=== PATIENT | female | born 1980 | race African-American/Black ===

== ENCOUNTER 2018-12-18 11:27 | Emergency (ER) | payer BC ==
[2018-12-18] MEDS ORDERED: KETOROLAC 30 MG/ML INJ ONE (13:54)
[2018-12-18] MEDS ORDERED: NA CHLORIDE 0.9% 1,000 ML ONE (13:54)
[2018-12-18 14:15] LABS: Absolute Lymphocytes (CBC) 2.5 K/uL (0.7-4.9); Absolute Monocytes 0.5 K/uL (0.1-1.3); Absolute Neutrophil 3.8 K/uL (1.8-8.0); Basophils % 1.1 % (0-1.3); Hematocrit 37.6 % (36.0-45.0); Lymphocytes % 35.7 % (15.3-44.8); MPV 7.7 fL (7.6-11.3); Monocytes % 6.7 % (3.3-12.3)
[2018-12-18 14:42] LABS: ALT/SGPT 18 U/L (12-78); AST/SGOT 11 U/L (15-37); Albumin 3.3 g/dL (3.4-5.0); Alkaline Phosphatase 87 U/L (45-117); BUN Blood Urea Nitrogen 14 mg/dL (7-18); Bicarbonate 27 mmol/L (21-32); Bilirubin Total 0.2 mg/dL (0.2-1.0); Creatine Phosphokinase 99 U/L (26-192); Glucose Level 100 mg/dL (74-106); Magnesium 2.2 mg/dL (1.8-2.4); Potassium 4.1 mmol/L (3.5-5.1); Protein, Total 7.8 g/dL (6.4-8.2); Sodium Level 141 mmol/L (136-145); Troponin I < 0.02 ng/mL (0.0-0.045)
[2018-12-18 14:59] LABS: Urine Culture Reflex Order NOT NEEDED
[2018-12-18 15:15] LABS: Urine Blood NEGATIVE (NEG); Urine Glucose NEGATIVE (NEG); Urine Protein TRACE (NEG); Urine Specific Gravity >1.030 (1.005-1.030)
--- NOTE | 2018-12-18 15:21 | EDPHYS ---
Physician Documentation [facility] Name: Karena Barron Age: 38 yrs Sex: Female : 1980 Arrival Date: 12/18/2018 Time: 11:32 Bed 14 Private MD: ED Physician Sho Banegas HPI: 12/18 13:38 This 38 yrs old Black Female presents to ER via Ambulatory with complaints of Pain All cp Over. 13:38 generalized body aches, generalized muscle aches, generalized joint pain. Onset: The cp symptoms/episode began/occurred last night. Severity of symptoms: in the emergency department the symptoms are unchanged despite home interventions. 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 - Social history:: Smoking status: Patient/guardian denies using tobacco. - Ebola Screening: : Patient denies exposure to infectious person Patient denies travel to an Ebola-affected area in the 21 days before illness onset. ROS: 13:45 Constitutional: Positive for body aches, myalgias, Negative for fever, poor PO intake. cp 13:45 ENT: Negative for drainage from ear(s), ear pain, sore throat, difficulty swallowing, cp difficulty handling secretions. 13:45 Neck: Negative for pain with movement, stiffness, swollen nodes. 13:45 Cardiovascular: Negative for chest pain, edema, palpitations. 13:45 Respiratory: Negative for cough, shortness of breath, wheezing. 13:45 Abdomen/GI: Negative for abdominal pain, nausea, vomiting, and diarrhea, constipation, black/tarry stool, rectal bleeding. 13:45 : Negative for urinary symptoms. 13:45 MS/extremity: Positive for joint aches, Negative for injury or acute deformity, decreased range of motion, paresthesias. 13:45 Skin: Negative for cellulitis, rash. 13:45 Neuro: Negative for altered mental status, headache, weakness. 13:45 All other systems are negative. Exam: 13:50 Constitutional: The patient appears in no acute distress, alert, awake, non-toxic, well cp developed, well nourished. 13:50 Head/Face: Normocephalic, atraumatic. cp 13:50 Eyes: Pupils equal round and reactive to light, extra-ocular motions intact. Lids and cp lashes normal. Conjunctiva and sclera are non-icteric and not injected. Cornea within normal limits. Periorbital areas with no swelling, redness, or edema. ENT: Nares patent. No nasal discharge, no septal abnormalities noted. Tympanic membranes are normal and external auditory canals are clear. Oropharynx with no redness, swelling, or masses, exudates, or evidence of obstruction, uvula midline. Mucous membranes moist. 13:50 Neck: ROM/movement: Meningeal signs: are not present, nuchal rigidity, is not appreciated. 13:50 Chest/axilla: Inspection: normal, Palpation: is normal, no crepitus, no tenderness. 13:50 Cardiovascular: Rate: normal, Rhythm: regular, Edema: is not appreciated, JVD: is not appreciated. 13:50 Respiratory: the patient does not display signs of respiratory distress, Respirations: cp normal, no use of accessory muscles, no retractions, no splinting, no tachypnea, labored breathing, is not present, Breath sounds: are clear throughout, no decreased breath sounds, no stridor, no wheezing. 13:50 Abdomen/GI: Inspection: abdomen appears normal, Bowel sounds: active, all quadrants, Palpation: abdomen is soft and non-tender, in all quadrants, rebound tenderness, is not appreciated, voluntary guarding, is not appreciated, involuntary guarding, is not appreciated. 13:50 Back: pain, that is mild, diffuse, ROM is normal. 13:50 Skin: cellulitis, is not appreciated, no rash present. 13:50 Neuro: Orientation: to person, place \T\ time. Mentation: is normal, Cerebellar function: is grossly normal, Motor: moves all fours, strength is normal, Sensation: is normal. 14:10 ECG was reviewed by the Attending Physician. cp Vital Signs: 11:36 Pulse 82; Resp 16; Temp 97.4(TE); Pulse Ox 99% on R/A; Weight 95.25 kg; Height 5 ft. 6 ss in. (167.64 cm); Pain 7/10; 11:38 BP 109 / 68; ss 15:48 BP 119 / 82; Pulse 75; Resp 17; Pulse Ox 99% on R/A; aj 11:36 Body Mass Index 33.89 (95.25 kg, 167.64 cm) ss MDM: 13:33 Patient medically screened. cp 14:00 Differential Diagnosis sepsis, flu, UTI. cp 15:18 Data reviewed: vital signs, nurses notes, lab test result(s), and as a result, I will cp discharge patient. 15:18 Counseling: I had a detailed discussion with the patient and/or guardian regarding: the cp historical points, exam findings, and any diagnostic results supporting the discharge/admit diagnosis, lab results, the need for outpatient follow up, a family practitioner, to return to the emergency department if symptoms worsen or persist or if there are any questions or concerns that arise at home. 15:18 Response to treatment: the patient's symptoms have mildly improved after treatment, and cp as a result, I will discharge patient. 12/18 13:40 Order name: Influenza Screen (a \T\ B); Complete Time: 15:12 cp 12/18 13:40 Order name: CBC with Diff; Complete Time: 15:12 cp 12/18 15:12 Interpretation: Normal except: RBC 4.90; MCV 76.8; MCH 24.7; RDW 16.3. cp 12/18 13:40 Order name: CMP; Complete Time: 15:12 cp 12/18 15:13 Interpretation: Normal except: CL 109; A/G 0.7; GLOB 4.5; ALB 3.3; AST 11. cp 12/18 13:40 Order name: Urine Microscopic Only cp 12/18 13:40 Order name: Magnesium; Complete Time: 15:12 cp 12/18 13:40 Order name: Troponin I; Complete Time: 15:12 cp 12/18 13:40 Order name: Urine Dipstick-Ancillary (obtain specimen); Complete Time: 14:28 cp 12/18 13:40 Order name: Urine Test (obtain specimen); Complete Time: 14:28 cp 12/18 13:40 Order name: EKG; Complete Time: 13:41 cp 12/18 13:40 Order name: CK; Complete Time: 15:12 cp 12/18 14:30 Order name: Urine Dipstick--Ancillary (enter results) bd 12/18 14:30 Order name: Urine --Ancillary (enter results) bd 12/18 13:40 Order name: IV; Complete Time: 14:09 cp 12/18 13:40 Order name: EKG - Nurse/Tech; Complete Time: 14:09 cp EC:10 Rate is 75 beats/min. Rhythm is regular. NV interval is normal. QRS interval is normal. cp QT interval is normal. T waves are Flattened in lead III. Interpreted by me. Reviewed by me. Administered Medications: 14:29 Drug: NS 0.9% 1000 ml Route: IV; Rate: 1 bolus; Site: right antecubital; aj 15:50 Follow up: Response: No adverse reaction; Temperature is decreased; IV Status: aj Completed infusion; IV Intake: 1000ml 14:30 Drug: TORadol 30 mg Route: IVP; Site: right antecubital; aj 15:50 Follow up: Response: No adverse reaction; Pain is decreased aj Disposition: 16:00 Chart complete. cp 18:43 Co-signature as Attending Physician, Sho Banegas MD. ma2 Disposition: 12/18/18 15:20 Discharged to Home. Impression: Encounter for screening, unspecified. - Condition is Stable. - Discharge Instructions: Form - Excuse from Work, School, or Physical Activity. - Prescriptions for Ibuprofen 800 mg Oral Tablet - take 1 tablet by ORAL route every 8 hours As needed take with food; 30 tablet. - Work release form, Medication Reconciliation Form, Thank You Letter, Antibiotic Education, Prescription Opioid Use form. - Follow up: Private Physician; When: 2 - 3 days; Reason: Recheck today's complaints. - Problem is new. - Symptoms have improved. Signatures: Dispatcher [employer] Anu Luo RN RN aj Smirch, Shelby, RN RN ss Page, Corey, PA PA cp Alzahri, Mohammad, MD MD ma2 Corrections: (The following items were deleted from the chart) 15:13 15:12 Normal except: CL 109. cp cp 15:13 15:13 Normal except: CL 109; A/G 0.7; GLOB 4.5; ALB 3.3. cp cp 15:52 15:20 12/18/2018 15:20 Discharged to Home. Impression: Encounter for screening, aj unspecified. Condition is Stable. Forms are Medication Reconciliation Form, Thank You Letter, Antibiotic Education, Prescription Opioid Use. Follow up: Private Physician; When: 2 - 3 days; Reason: Recheck today's complaints. Problem is new. Symptoms have improved. cp
--- NOTE | 2018-12-18 15:21 | ER ---
Nurse's Notes [facility] Name: Karena Barron Age: 38 yrs Sex: Female : 1980 Arrival Date: 12/18/2018 Time: 11:32 Bed 14 Private MD: Diagnosis: Encounter for screening, unspecified Presentation: 12/18 11:32 Transition of care: patient was not received from another setting of care. Risk ss Assessment: Do you want to hurt yourself or someone else? Patient reports no desire to harm self or others. Care prior to arrival: None. 11:32 Method Of Arrival: Ambulatory ss 11:32 Presenting complaint: Patient states: Pt reports body aches that began last night. Pt ss states, "I don't have a fever or the flu or anything like that, but I have a skin condition and I don't think it does, but maybe it has something to do with that.". Onset of symptoms was December 17, 2018. Initial Sepsis Screen: Does the patient meet any 2 criteria? No. Patient's initial sepsis screen is negative. Does the patient have a suspected source of infection? No. Patient's initial sepsis screen is negative. 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 - Social history:: Smoking status: Patient/guardian denies using tobacco. - Ebola Screening: : Patient denies exposure to infectious person Patient denies travel to an Ebola-affected area in the 21 days before illness onset. Screenin:48 Abuse screen: Denies threats or abuse. Denies injuries from another. Nutritional aj screening: No deficits noted. Tuberculosis screening: No symptoms or risk factors identified. Fall Risk None identified. Assessment: 14:38 General: Appears in no apparent distress. comfortable, Behavior is calm, cooperative, aj appropriate for age. Pain: Complains of pain in all over. Neuro: Level of Consciousness is awake, alert, obeys commands, Oriented to person, place, time, situation, Appropriate for age. Respiratory: Airway is patent Respiratory effort is even, unlabored, Respiratory pattern is regular, symmetrical. Derm: Skin is intact, is healthy with good turgor, Skin is pink, warm \\T\\ dry. normal. Vital Signs: 11:36 Pulse 82; Resp 16; Temp 97.4(TE); Pulse Ox 99% on R/A; Weight 95.25 kg; Height 5 ft. 6 ss in. (167.64 cm); Pain 7/10; 11:38 BP 109 / 68; ss 15:48 BP 119 / 82; Pulse 75; Resp 17; Pulse Ox 99% on R/A; aj 11:36 Body Mass Index 33.89 (95.25 kg, 167.64 cm) ED Course: 11:32 Patient arrived in ED. ss 11:32 Arm band placed on left wrist. ss 11:34 Triage completed. ss 13:19 Anu Howell, RN is Primary Nurse. aj 13:33 Joe Salas PA is PHCP. cp 13:33 Sho aBnegas MD is Attending Physician. cp 14:04 Initial lab(s) drawn, by me, sent to lab. Flu and/or RSV swab sent to lab. Inserted dh3 saline lock: 20 gauge in right antecubital area, using aseptic technique. Blood collected. 14:22 EKG done, by nuclear plant instrument technician. reviewed by Joe KAPOOR. dt2 14:28 Urine collected: clean catch specimen, clear. dh3 15:48 Patient has correct armband on for positive identification. aj 15:48 No provider procedures requiring assistance completed. Patient did not have IV access aj during this emergency room visit. Administered Medications: 14:29 Drug: NS 0.9% 1000 ml Route: IV; Rate: 1 bolus; Site: right antecubital; aj 15:50 Follow up: Response: No adverse reaction; Temperature is decreased; IV Status: aj Completed infusion; IV Intake: 1000ml 14:30 Drug: TORadol 30 mg Route: IVP; Site: right antecubital; aj 15:50 Follow up: Response: No adverse reaction; Pain is decreased aj Intake: 15:50 IV: 1000ml; Total: 1000ml. aj Outcome: 15:20 Discharge ordered by . cp 15:48 Discharged to home ambulatory. aj 15:48 Condition: good 15:48 Discharge instructions given to patient, Instructed on discharge instructions, follow up and referral plans. medication usage, Demonstrated understanding of instructions, follow-up care, medications, Prescriptions given X 1. 15:52 Patient left the ED. aj Signatures: Anu Howell RN RN aj Smirch, Shelby, RN RN ss Page, Corey, PA PA cp Herrera, Sobeida 3 Christina Terry dt2
[2018-12-18 15:28] LABS: Urine Bacteria <20 /HPF (<20); Urine RBC <5 /HPF (NONE SEEN)
[2018-12-18 15:29] LABS: Urine Mucus 2+ /HPF (NONE SEEN)
--- NOTE | 2018-12-18 15:51 | EKG ---
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
== END 2018-12-18 15:52 | disposition home or self-care (01) ==
LOC: ER 11:27
DX: Z13.9 Encounter for screening, unspecified (principal)
CPT/HCPCS: 36415; 80053; 81003; 81015; 81025; 82550; 83735; 84484; 85025; 87804; 93005; 96361; 96374; 99284; J7030

== ENCOUNTER 2019-08-19 17:11 | Emergency (ER) | payer BC, SELFPAY ==
[2019-08-19] MEDS ORDERED: LIDOCAINE VISCOUS 2% SOLN 15 ML UDC ONE (18:00)
--- NOTE | 2019-08-19 18:26 | EDPHYS ---
Physician Documentation [facility] Name: Karena Barron Age: 39 yrs Sex: Female : 1980 Arrival Date: 08/19/2019 Time: 17:13 Bed 23 Private MD: ED Physician Miguel Huang HPI: 08/19 18:16 This 39 yrs old Black Female presents to ER via Ambulatory with complaints of gs Hemorrhoids. 18:16 The patient presents to the emergency department with pain in the rectal area, that is gs severe. Onset: The symptoms/episode began/occurred yesterday. Context: the patient has a known history of hemorrhoids. Modifying factors: The symptoms are aggravated by bowel movement, movement, sitting position. Associate signs and symptoms: Pertinent negatives: lower GI bleeding. The patient has experienced similar episodes in the past, a few times. The patient has not recently seen a physician. 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 - Social history:: The patient lives with family, Smoking status: unknown. - Ebola Screening: : No symptoms or risks identified at this time. ROS: 18:16 All other systems are negative. gs Exam: 18:16 Head/Face: Normocephalic, atraumatic. Eyes: Pupils equal round and reactive to light, gs extra-ocular motions intact. Lids and lashes normal. Conjunctiva and sclera are non-icteric and not injected. Cornea within normal limits. Periorbital areas with no swelling, redness, or edema. ENT: Nares patent. No nasal discharge, no septal abnormalities noted. Tympanic membranes are normal and external auditory canals are clear. Oropharynx with no redness, swelling, or masses, exudates, or evidence of obstruction, uvula midline. Mucous membranes moist. Neck: Trachea midline, no thyromegaly or masses palpated, and no cervical lymphadenopathy. Supple, full range of motion without nuchal rigidity, or vertebral point tenderness. No Meningismus. Chest/axilla: Normal chest wall appearance and motion. Nontender with no deformity. No lesions are appreciated. Cardiovascular: Regular rate and rhythm with a normal S1 and S2. No gallops, murmurs, or rubs. Normal PMI, no JVD. No pulse deficits. Respiratory: Lungs have equal breath sounds bilaterally, clear to auscultation and percussion. No rales, rhonchi or wheezes noted. No increased work of breathing, no retractions or nasal flaring. Back: No spinal tenderness. No costovertebral tenderness. Full range of motion. Skin: Warm, dry with normal turgor. Normal color with no rashes, no lesions, and no evidence of cellulitis. MS/ Extremity: Pulses equal, no cyanosis. Neurovascular intact. Full, normal range of motion. Neuro: Awake and alert, GCS 15, oriented to person, place, time, and situation. Cranial nerves II-XII grossly intact. Motor strength 5/5 in all extremities. Sensory grossly intact. Cerebellar exam normal. Normal gait. 18:16 Constitutional: The patient appears alert, awake, uncomfortable. 18:16 Abdomen/GI: Palpation: abdomen is soft and non-tender, in all quadrants, Rectal exam: hemorrhoid(s), external, with inflammation, with pain, without bleeding, without thrombosis. Vital Signs: 17:50 BP 124 / 82; Pulse 92; Resp 16 S; Temp 98.8(O); Pulse Ox 99% on R/A; Weight 95.25 kg aa5 (R); Height 5 ft. 7 in. (170.18 cm) (R); Pain 9/10; 17:50 Body Mass Index 32.89 (95.25 kg, 170.18 cm) aa5 MDM: 18:09 Patient medically screened. gs 18:16 Differential diagnosis: hemorrhoids, fissure. Data reviewed: vital signs, nurses notes. gs Counseling: I had a detailed discussion with the patient and/or guardian regarding: the historical points, exam findings, and any diagnostic results supporting the discharge/admit diagnosis, the need for outpatient follow up, a general surgeon. Response to treatment: the patient's symptoms have mildly improved after treatment, and as a result, I will discharge patient. Administered Medications: 18:08 Drug: Viscous Lidocaine Liquid (4 %) 1 vials {Note: administered by Dr. Huang to aa5 hemorrhoid. .} Route: Mucous Membrane; 18:51 Follow up: Response: No adverse reaction 18:30 Drug: [place] 10 mg-325 mg 1 tabs Route: PO; 18:51 Follow up: Response: No adverse reaction; RASS: Alert and Calm (0) Disposition: 08/19/19 18:26 Discharged to Home. Impression: Hemorrhoids and perianal venous thrombosis. - Condition is Stable. - Discharge Instructions: Hemorrhoids, [id number]. - Medication Reconciliation Form, Thank You Letter, Antibiotic Education, Prescription Opioid Use form. - Follow up: Ta Irvin MD; When: 1 - 2 days; Reason: Re-evaluation by your physician. - Notes: recticare and colace stool softener as directed over the counter Signatures: Mayte Fox RN RN 5 Wyatt Byrnes Miguel Huang MD MD Corrections: (The following items were deleted from the chart) 18:54 18:26 08/19/2019 18:26 Discharged to Home. Impression: Hemorrhoids and perianal venous wh thrombosis. Condition is Stable. Forms are Medication Reconciliation Form, Thank You Letter, Antibiotic Education, Prescription Opioid Use. Follow up: Dr. Ta Irvin; When: 1 - 2 days; Reason: Re-evaluation by your physician. gs
--- NOTE | 2019-08-19 18:26 | ER ---
Nurse's Notes [facility] Name: Karena Barron Age: 39 yrs Sex: Female : 1980 Arrival Date: 08/19/2019 Time: 17:13 Bed 23 Private MD: Diagnosis: Hemorrhoids and perianal venous thrombosis Presentation: 08/19 17:46 Presenting complaint: Patient states: external hemorrhoids and pain to site. Pt denies aa5 rectal bleeding. 17:46 Transition of care: patient was not received from another setting of care. Onset of aa5 symptoms was August 2019. Risk Assessment: Do you want to hurt yourself or someone else? Patient reports no desire to harm self or others. Initial Sepsis Screen: Does the patient meet any 2 criteria? No. Patient's initial sepsis screen is negative. Does the patient have a suspected source of infection? No. Patient's initial sepsis screen is negative. Care prior to arrival: None. 17:46 Acuity: TATY 3 aa5 17:46 Method Of Arrival: Ambulatory aa5 Triage Assessment: 18:49 General: Behavior is calm, cooperative, appropriate for age. 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 - Social history:: The patient lives with family, Smoking status: unknown. - Ebola Screening: : No symptoms or risks identified at this time. Screenin:46 Abuse screen: Denies threats or abuse. Denies injuries from another. Nutritional screening: No deficits noted. Tuberculosis screening: No symptoms or risk factors identified. Fall Risk None identified. Assessment: 18:05 General: Appears in no apparent distress. uncomfortable. Pain: Complains of pain in Rectal Area Pain does not radiate. Pain currently is 10 out of 10 on a pain scale. Neuro: Level of Consciousness is awake, alert, obeys commands. Cardiovascular: Capillary refill < 3 seconds. Respiratory: Airway is patent Respiratory effort is even, unlabored, Respiratory pattern is regular, symmetrical. GI: Abdomen is flat, non-distended, Reports hemorrhoids. : No signs and/or symptoms were reported regarding the genitourinary system. EENT: No signs and/or symptoms were reported regarding the EENT system. Derm: Skin is intact, is healthy with good turgor, Skin is pink, warm \T\ dry. normal. Musculoskeletal: Circulation, motion, and sensation intact. Vital Signs: 17:50 BP 124 / 82; Pulse 92; Resp 16 S; Temp 98.8(O); Pulse Ox 99% on R/A; Weight 95.25 kg aa (R); Height 5 ft. 7 in. (170.18 cm) (R); Pain 9/10; 17:50 Body Mass Index 32.89 (95.25 kg, 170.18 cm) [facility] ED Course: 17:13 Patient arrived in ED. mr 17:46 Arm band placed on Patient placed in an exam room, on a stretcher. [facility] 17:49 Miguel Huang MD is Attending Physician. 17:57 Wyatt Byrnes is Primary Nurse. 18:05 Placed in gown. Bed in low position. Call light in reach. Side rails up X 1. Pulse ox wh on. NIBP on. 18:07 Triage completed. [facility] 18:25 Ta Irvin MD is Referral Physician. 18:49 No provider procedures requiring assistance completed. Patient did not have IV access during this emergency room visit. Administered Medications: 18:08 Drug: Viscous Lidocaine Liquid (4 %) 1 vials {Note: administered by Dr. Huang to [facility] hemorrhoid. .} Route: Mucous Membrane; 18:51 Follow up: Response: No adverse reaction 18:30 Drug: [place] 10 mg-325 mg 1 tabs Route: PO; 18:51 Follow up: Response: No adverse reaction; RASS: Alert and Calm (0) Outcome: 18:26 Discharge ordered by . 18:49 Discharged to home ambulatory, with family. 18:49 Condition: good 18:49 Discharge instructions given to patient, Instructed on discharge instructions, follow up and referral plans. POC Hemorrhoids Demonstrated understanding of instructions, follow-up care, POC 18:54 Patient left the ED. Signatures: Raquel Wyman mr FoxMayte, RN RN [facility] Wyatt Byrnes Huang, Miguel, MD MD gs
[2019-08-19] MEDS ORDERED: HYDROCODONE/APAP 10/325 TAB ONE (18:46)
[2019-08-19 19:14] VITALS: BP 124/82; TEMP 98.8; O2SAT 99
== END 2019-08-19 18:54 | disposition home or self-care (01) ==
LOC: ER 17:11
DX: K64.5 Perianal venous thrombosis (principal); K64.9 Unspecified hemorrhoids
CPT/HCPCS: 99283

== ENCOUNTER 2021-01-22 09:11 | Emergency (ER) | payer SELFPAY ==
--- OUTSIDE RECORDS SUMMARY | 2021-01-22 09:14 | XMS REPORT | Continuity of Care Document ---
:1980 Author Organization [facility] t Address [address] [place] [address] Care Team Providers Name Role Phone Asked, Pcp Primary Care Physician Unavailable MCLEOD Attending Clinician Unavailable ALDANA Attending Clinician Unavailable Problems Condition Condition Condition Status Onset Resolution Last Treating Co mments Source Name Details Category Date Date Treatment Clinician Date Antepartum Antepartum Problem Active U nivers elderly elderly ity of multigrav[place] multigrav[place] [facility] Macrosomia Macrosomia Problem Active U nivers affecting affecting [place] of management [place] of mother, of mother, Ph ysici antepartum antepartum an s Hidradenit Hidradenit Problem Active U nivers is is ity of suppurativ suppurativ [place] [facility] ans [place] of Mass of Problem Active Univers both both ity of axillae axillae [place] [facility] Allergies, Adverse Reactions, Alerts This patient has no known allergies or adverse reactions. Family History Family Member Diagnosis Comments Start Date Stop Date Source Mother Family history of [facility] ity of malignant [place] [facility] neoplasm of female breast Father Family history of [facility] ity of lung cancer [place] [facility] Maternal grandmother Breast cancer [place] Natural mother Breast cancer [place] [employer] Social History Social Habit Start Date Stop Date Quantity Comments Source Sex Assigned At [place] Smoking Status Start Date Stop Date Source Former smoker [facility] Medications This patient has no known medications. Vital Signs Vital Name Observation Time Observation Value Comments Source BP Systolic 2019-01-01 14:33:00 125 mm[Hg] [facility] Physician s BP Diastolic 2019-01-01 14:33:00 84 mm[Hg] [facility] Physician s Height 2019-01-01 14:33:00 67 [in_us] [facility] Weight 2019-01-01 14:33:00 216.6 [lb_av] [facility] [place] [facility] Body Mass Index 2019-01-01 14:33:00 33.92 kg/m2 Unive rsity of Calculated [place] [facility] Temperature 2019-01-01 14:33:00 98.8 [degF] [facility] [place] [facility] Heart Rate 2019-01-01 14:33:00 85 /min [facility] [place] [facility] BP Systolic 2018-03-11 14:40:00 137 mm[Hg] [facility] [place] [facility] BP Diastolic 2018-03-11 14:40:00 80 mm[Hg] [facility] [place] [facility] Weight 2018-03-11 14:40:00 210 [lb_av] [facility] [place] [facility] Temperature 2018-03-11 14:40:00 98.7 [degF] [facility] [place] [facility] Heart Rate 2018-03-11 14:40:00 97 /min [facility] [place] [facility] Procedures This patient has no known procedures. Plan of Care Planned Activity Planned Date Details Comments Source Future Scheduled 2020-06-19 INFLUENZA VACCINE [place] [facility] Test 00:00:00 [code = INFLUENZA VACCINE] Future Scheduled 1999 Screening for [facility] 00:00:00 malignant neoplasm of cervix (procedure) [code = 459006313] Future Scheduled 1994 COVID-19 VACCINE (1 [place] [employer] [facility] Test 00:00:00 of 2) [code = COVID-19 VACCINE (1 of 2)] Encounters Start End Encounter Admission Attending Care Care Encounter Source Date/Time Date/Time Type Type Clinicians Facility Department ID 2019-01-01 2019-01-01 JOLIE Devries [facility] [id number] Univers 14:00:00 14:00:00 t; Rosanne SANTIAGO Surgery it y of Alondra MCLEOD Physici M.D. ans 2018-03-28 2018-03-28 AppointJOLIE Mcelroy [facility] [id number] Univers 13:15:00 13:15:00 t; SHE ALDANA ity o f STEVEN, M.D. [place] M.D. [facility] ans 2018-03-11 2018-03-11 Appointmen SHANI [facility] [id number] Univers 14:00:00 14:00:00 t; Rosanne SANTIAGO Surgery it y of Alondra MCLEOD Physici M.D. ans Results This patient has no known results.
[2021-01-22] MEDS ORDERED: TETANUS & DIPHTHERIA TOX,ADULT 0.5 ML VIAL ONE (10:06)
[2021-01-22] MEDS ORDERED: LIDOCAINE 1% MPF 5 ML VIAL ONE (10:12)
[2021-01-22] MEDS ORDERED: HYDROCODONE/APAP 5/325 MG TAB ONE (10:39)
--- NOTE | 2021-01-22 10:54 | RAD REPORT ---
EXAM DESCRIPTION: RAD - Hand Left 3 View - 01/22/2021 9:41 am CLINICAL HISTORY: Swelling;Painsecond digit COMPARISON: None. FINDINGS: No fracture, dislocation or periosteal reaction noted. Left second digit soft tissue swell ing is present but no air or foreign body seen in the soft tissues. IMPRESSION: Left second digit soft tissue swelling without air or foreign body in the soft tissues. No acute bone or joint findings.
--- NOTE | 2021-01-22 11:09 | ER ---
Nurse's Notes [facility] Name: Karena Barron Age: 40 yrs Sex: Female : 1980 Arrival Date: 01/22/2021 Time: 09:13 Bed 19 Private MD: Diagnosis: Cutaneous abscess of left hand-left second finger Presentation: 01/22 09:15 Chief complaint: Patient states: "as a child I got led stuck in my finger and about 3 aa5 to 4 days ago it seems like the led is trying to come out of my finger". Pt reports swelling and redness to left index finger. 09:15 Onset of symptoms was January 2021. aa5 09:15 Acuity: TATY 4 aa5 09:15 Method Of Arrival: Ambulatory aa5 09:15 Coronavirus screen: At this time, the client does not indicate any symptoms associated aa5 with coronavirus-19. Ebola Screen: Patient negative for fever greater than or equal to 101.5 degrees Fahrenheit, and additional compatible Ebola Virus Disease symptoms. Initial Sepsis Screen: Does the patient meet any 2 criteria? No. Patient's initial sepsis screen is negative. Does the patient have a suspected source of infection? No. Patient's initial sepsis screen is negative. Risk Assessment: Do you want to hurt yourself or someone else? Patient reports no desire to harm self or others. Triage Assessment: 09:15 General: Appears in no apparent distress. comfortable, Behavior is calm, cooperative, rb3 Denies fever. Pain: Complains of pain in palmar aspect of middle phalanx of left index finger Pain currently is 8 out of 10 on a pain scale. Pain began 3-4 days ago. Neuro: Level of Consciousness is awake, alert, obeys commands, Oriented to person, place, time, situation. Cardiovascular: Capillary refill < 3 seconds. Respiratory: Airway is patent Respiratory effort is even, unlabored, Respiratory pattern is regular, symmetrical. GI: No signs and/or symptoms were reported involving the gastrointestinal system. : No signs and/or symptoms were reported regarding the genitourinary system. Musculoskeletal: Swelling present in palmar aspect of middle phalanx of left index finger Reports Having a piece of led stuck in her finger since she was younger and she thinks it is trying to come out. Denies injuring her finger. Musculoskeletal: Range of motion: limited in left index finger. 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 - Social history:: Smoking status: Patient reports the use of cigarette tobacco products, denies chronic smoking, but will smoke occasionally. Screenin:15 Abuse screen: Denies threats or abuse. Nutritional screening: No deficits noted. rb3 Tuberculosis screening: No symptoms or risk factors identified. Fall Risk None identified. Assessment: 09:15 General: See triage assessment. rb3 10:09 Reassessment: Patient appears in no apparent distress at this time. No changes from rb3 previously documented assessment. 10:33 Reassessment: Provider at the bedside performing procedure. rb3 11:21 Reassessment: Patient appears in no apparent distress at this time. Patient and/or rb3 family updated on plan of care and expected duration. Pain level reassessed. Patient is alert, oriented x 3, equal unlabored respirations, skin warm/dry/pink. Applied a non-adherent bandage with Coban to the left index fiinger. No bleeding noted. Vital Signs: 09:15 BP 112 / 81; Pulse 68; Resp 17; Temp 98.2; Pulse Ox 99% ; Weight 92.99 kg; Height 5 ft. rb3 6 in. (167.64 cm); Pain 8/10; 10:48 BP 121 / 90; Pulse 84; Resp 16; Pulse Ox 100% ; rb3 11:24 BP 116 / 69; Pulse 84; Resp 16; Pulse Ox 100% ; rb3 09:15 Body Mass Index 33.09 (92.99 kg, 167.64 cm) rb3 ED Course: 09:13 Patient arrived in ED. am2 09:15 Arm band placed on Patient placed in an exam room. aa5 09:15 Patient has correct armband on for positive identification. Bed in low position. Call rb3 light in reach. Side rails up X 1. Pulse ox on. NIBP on. 09:16 Ankur Patel NP is PHCP. pm1 09:16 Joe Lawrence MD is Attending Physician. pm1 09:17 Maria E Hylton, RN is Primary Nurse. rb3 09:32 Triage completed. aa5 11:26 No provider procedures requiring assistance completed. Patient did not have IV access rb3 during this emergency room visit. 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 Exp: rb3 04/24/2022. Lot #: [id number]. } Route: IM; Site: right deltoid; 10:03 Follow up: Response: No adverse reaction rb3 10:24 Drug: [place] 5 mg-325 mg 1 tabs Route: PO; rb3 11:09 Follow up: Response: No adverse reaction; Pain is decreased rb3 10:42 Drug: Lidocaine (1 %) 5 ml Volume: 5 ml; Route: Infiltration; rb3 Outcome: 11:09 Discharge ordered by MD. pm1 11:26 Discharged to home ambulatory. rb3 11:26 Condition: stable 11:26 Discharge instructions given to patient, Instructed on discharge instructions, follow up and referral plans. medication usage, Demonstrated understanding of instructions, follow-up care, medications, Prescriptions given X 2. 11:28 Patient left the ED. rb3 Addendum: 01/25/2021 10:26 Addendum: Culture Results: Positive urine culture. No further action required. Bacteria h b sensitive to prescribed antibiotic. Signatures: Mayte Fox RN RN aa5 Ankur Patel NP WIRE DRAWER pm1 Asuncion Barber RN RN Anu Mitchell [facility] Maria E Hylton, CHARLES RN rb3
--- NOTE | 2021-01-22 11:09 | EDPHYS ---
Physician Documentation [facility] Name: Karena Barron Age: 40 yrs Sex: Female : 1980 Arrival Date: 01/22/2021 Time: 09:13 Bed 19 Private MD: ED Physician Joe Lawrence HPI: 01/22 09:49 This 40 yrs old Black Female presents to ER via Ambulatory with complaints of left pm1 index finger swelling. 09:49 The patient or guardian reports pain, swelling. pm1 09:49 The complaints affect the palmar aspect of proximal phalanx of left index finger. pm1 Context: resulted from an unknown cause, possibly from old pencil lead that might be in her finger from over 25 years ago. Onset: The symptoms/episode began/occurred 3 day(s) ago, and became worse. Modifying factors: The symptoms are alleviated by nothing, the symptoms are aggravated by movement. Severity of symptoms: in the emergency department the symptoms are actually worse. The patient has not experienced similar symptoms in the past. The patient has not recently seen a physician. CALL MANAGER: 09:15 LMP 01/16/2021 rb3 Historical: - Allergies: 09:15 unknown pain medication; rb3 - Home Meds: 09:15 None [Active]; rb3 - PMHx: 09:15 Depression; hydranitis suppurativa; rb3 - PSHx: 09:15 ; rb3 - Immunization history:: Last tetanus immunization: unknown. - Social history:: Smoking status: Patient reports the use of cigarette tobacco products, denies chronic smoking, but will smoke occasionally. ROS: 09:49 Constitutional: Negative for fever, chills, and weight loss, Cardiovascular: Negative pm1 for chest pain, palpitations, and edema, Respiratory: Negative for shortness of breath, cough, wheezing, and pleuritic chest pain. 09:49 MS/extremity: Positive for pain, swelling, tenderness, of the palmar aspect of middle phalanx of left index finger, Negative for decreased range of motion, deformity. 09:49 Skin: Positive for swelling, of the palmar aspect of middle phalanx of left index finger. 09:49 Neuro: Negative for numbness, tingling, to left hand and fingers. Exam: 09:49 Constitutional: This is a well developed, well nourished patient who is awake, alert, pm1 and in no acute distress. Head/Face: Normocephalic, atraumatic. 09:49 Cardiovascular: Exam negative for acute changes, Rate: normal, Rhythm: regular, Pulses: no pulse deficits are appreciated. 09:49 Respiratory: Exam negative for acute changes, respiratory distress, shortness of breath. 09:49 Musculoskeletal/extremity: Extremities: grossly normal except: noted in the palmar aspect of middle phalanx of left index finger: swelling, tenderness. 09:49 Skin: Appearance: normal except for affected area, abscess, that is small, of the palmar aspect of proximal phalanx of left index finger, with fluctuance, with pointing, that is subtle, negative for drainage, surrounding cellulitis, drainage, cellulitis, is not appreciated. Vital Signs: 09:15 BP 112 / 81; Pulse 68; Resp 17; Temp 98.2; Pulse Ox 99% ; Weight 92.99 kg; Height 5 ft. rb3 6 in. (167.64 cm); Pain 8/10; 10:48 BP 121 / 90; Pulse 84; Resp 16; Pulse Ox 100% ; rb3 11:24 BP 116 / 69; Pulse 84; Resp 16; Pulse Ox 100% ; rb3 09:15 Body Mass Index 33.09 (92.99 kg, 167.64 cm) rb3 Procedures: 11:07 I \T\ D: Incision and drainage was performed for an abscess of the left palmar aspect of pm1 proximal phalanx of left index finger Prepped with Betadine, Anesthetized with 5 ml's 1% Lidocaine. digital block. Incised with #11 blade. Drained small amount purulent fluid. the patient tolerated the procedure well. MDM: 09:17 Patient medically screened. pm1 11:07 Data reviewed: vital signs. Counseling: I had a detailed discussion with the patient pm1 and/or guardian regarding: the historical points, exam findings, and any diagnostic results supporting the discharge/admit diagnosis, radiology results, the need for outpatient follow up, a hand specialist, to return to the emergency department if symptoms worsen or persist or if there are any questions or concerns that arise at home. 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 Exp: rb3 04/24/2022. Lot #: [id number]. } Route: IM; Site: right deltoid; 10:03 Follow up: Response: No adverse reaction rb3 10:24 Drug: [place] 5 mg-325 mg 1 tabs Route: PO; rb3 11:09 Follow up: Response: No adverse reaction; Pain is decreased rb3 10:42 Drug: Lidocaine (1 %) 5 ml Volume: 5 ml; Route: Infiltration; rb3 Disposition: 01/23 09:08 Co-signature as Attending Physician, Joe Lawrence MD I agree with the assessment and bright plan of care. Disposition: 01/22/21 11:09 Discharged to Home. Impression: Cutaneous abscess of left hand - left second finger. - Condition is Stable. - Discharge Instructions: Skin Abscess, Incision and Drainage. - Prescriptions for Bactrim DS 800- 160 mg Oral Tablet - take 1 tablet by ORAL route every 12 hours for 10 days; 20 tablet. Tylenol- Codeine #3 300-30 mg Oral Tablet - take 2 tablets by ORAL route every 4-6 hours As needed; 20 tablet. - Medication Reconciliation Form, Thank You Letter, Antibiotic Education, Prescription Opioid Use form. - Follow up: Emergency Department; When: As needed; Reason: Worsening of condition. Follow up: Private Physician; When: 2 - 3 days; Reason: Recheck today's complaints, Continuance of care, Re-evaluation by your physician. - Problem is new. - Symptoms have improved. Signatures: Dispatcher [employer] Joe Chua MD MD cha Marinas, Patrick, PATIENT REGISTRATION CLERK PATIENT REGISTRATION CLERK pm1 Maria E Hylton, RN RN rb3 Corrections: (The following items were deleted from the chart) 01/22 11:08 11:07 Counseling: I had a detailed discussion with the patient and/or guardian pm1 regarding: the historical points, exam findings, and any diagnostic results supporting the discharge/admit diagnosis, radiology results, the need for outpatient follow up, to return to the emergency department if symptoms worsen or persist or if there are any questions or concerns that arise at home, pm1 11:28 11:09 01/22/2021 11:09 Discharged to Home. Impression: Cutaneous abscess of left hand - rb3 left second finger. Condition is Stable. Forms are Medication Reconciliation Form, Thank You Letter, Antibiotic Education, Prescription Opioid Use. Follow up: Emergency Department; When: As needed; Reason: Worsening of condition. Follow up: Private Physician; When: 2 - 3 days; Reason: Recheck today's complaints, Continuance of care, Re-evaluation by your physician. Problem is new. Symptoms have improved. pm1 20:59 09:49 The complaints affect the palmar aspect of middle phalanx of left index finger, pm1 pm1 21:01 09:49 Skin: Positive for swelling, of the palmar aspect of middle phalanx of left index pm1 finger, pm1 21:02 09:49 Skin: Appearance: normal except for affected area, abscess, that is small, of the pm1 palmar aspect of middle phalanx of left index finger, with fluctuance, with pointing, that is subtle, negative for drainage, surrounding cellulitis, drainage, cellulitis, is not appreciated, pm1
[2021-01-22 11:39] VITALS: TEMP 98.2
[2021-01-22 11:40] VITALS: O2SAT 100
[2021-01-22 11:45] VITALS: BP 116/69
== END 2021-01-22 11:28 | disposition home or self-care (01) ==
LOC: ER 09:11
PROC: 0H9GXZZ Drainage of Left Hand Skin, External Approach (ICD-10-PCS; principal; 2021-01-22)
DX: L02.512 Cutaneous abscess of left hand (principal); F17.210 Nicotine dependence, cigarettes, uncomplicated; Z23 Encounter for immunization; Z88.6 Allergy status to analgesic agent
CPT/HCPCS: 87070; 87077; 87186; 87205; 90471; 90714; 99283

== ENCOUNTER 2022-03-21 23:12 | Emergency (ER) | payer SELFPAY ==
--- OUTSIDE RECORDS SUMMARY | 2022-03-21 23:15 | XMS REPORT | Continuity of Care Document ---
:1980 Author Organization [facility] t Address [address] [place] [address] [address]. [address] [place] [address] Care Team Providers Name Role Phone PCP, DOES NOT HAVE A Primary Care Physician Unavailable Jose Ramon [place] Attending Clinician Unavailable Jose Ramon [place] MD Attending Clinician Rose_Bryan Attending Clinician Unavailable RADHA Attending Clinician Unavailable SHANI Attending Clinician Unavailable ALDANA Attending Clinician Unavailable Vernon Admitting Clinician Unavailable [facility] Admitting Clinician Unavailable Payers Payer Name Policy Type Policy Number Effective Date Expiration Date S ource Problems Condition Condition Condition Status Onset Resolution Last Treating Co mments Source Name Details Category Date Date Treatment Clinician Date Obesity Obesity Problem Active [facility] Generalize Generalize Problem Active [place] anxiety d Anxiety da disorder [facility] Antepartum Antepartum Problem Active [facility]ivers elderly [...] [place] [facility] Allergies, Adverse Reactions, Alerts Allergy Allergy Status Severity Reaction(s) Onset Inactive Treating Comm ents Source Name Type Date Date Clinician NO KNOWN Drug Active [facility] ALLERGIE Class [facility] Family History Family Member Diagnosis Comments Start Date Stop Date Source Mother Family history of [facility] [place] malignant neoplasm Physic ians of female breast Father Family history of [facility] [place] lung cancer Physicians Social History Social Habit Start Date Stop Date Quantity Comments Source Exposure to Not sure [facility] SARS-CoV-2 (event) Medica l Branch Sex Assigned At [birth year] [facility] 00:00:00 00:00:00 [facility] [place] Smoking Status Start Date Stop Date Source Former Smoker [facility] Unknown if ever smoked [facility] Medications Ordered Filled Start Stop Current Ordering Indication Dosage Frequency Signature Comments Components Source Medication Medication Date Date Medication? Clinician (SIG) Name Name doxycycline doxycycline No 1capsul Q12H doxycyclin [place] hyclate 100 hyclate 100 e(s) e hyclate da mg capsule mg capsule 100 mg E piscop Take 1 Take 1 capsule al capsule capsule Take 1 Health every 12 every 12 capsule Outr eac hours by hours by every 12 h oral route oral route hours by Program as directed as directed oral route for 14 for 14 as days. days. directed for 14 days. Vitamin D3 Vitamin D3 No 1 Q1D Vitamin D3 [place] 125 mcg 125 mcg 125 mcg da (5,000 (5,000 (5,000 [facility] unit) unit) unit) al tablet Take tablet Take tablet Health 1 tablet 1 tablet Take 1 Outre ac every day every day tablet h by oral by oral every day Prog dinesh route as route as by oral directed directed route as for 30 for 30 directed days. days. for 30 days. Immunizations Ordered Immunization Filled Immunization Date Status Commen ts Source Name Name Tdap Tdap 2018-11-19 Completed [facility] 00:00:00 [facility] Vital Signs Vital Name Observation Time Observation Value Comments Source Diastolic blood 2021-12-05 23:50:00 94 mm[Hg] [facility] Heart rate 2021-12-05 23:50:00 92 /min [facility] Body temperature 2021-12-05 23:50:00 37.22 [facility] Respiratory rate 2021-12-05 23:50:00 18 /min [facility] Body weight 2021-12-05 23:50:00 95.255 kg [facility] Oxygen saturation in 2021-12-05 23:50:00 99 /min [facility] Arterial blood by [facility] Pulse oximetry Branch Systolic blood 2021-12-05 23:50:00 145 mm[Hg] Anne villatoro of pressure [place] [facility] Height 2021-05-17 00:00:00 66 [in_i] [place] [facility] BMI (Body Mass 2021-05-17 00:00:00 34.2 kg/m2 [facility] nutrition partner Index) [facility] BP Systolic 2021-05-17 00:00:00 112 mm[Hg] [place] [facility] Body Weight 2021-05-17 00:00:00 3392 [oz_av] [place] [facility] BP Diastolic 2021-05-17 00:00:00 78 mm[Hg] [place] [facility] BP Diastolic 2021-04-13 00:00:00 78 mm[Hg] [place] [facility] Height 2021-04-13 00:00:00 66 [in_i] [place] [facility] BMI (Body Mass 2021-04-13 00:00:00 33.9 kg/m2 [place] nutrition partner Index) [facility] BP Systolic 2021-04-13 00:00:00 116 mm[Hg] [place] [facility] Body Weight 2021-04-13 00:00:00 3360 [oz_av] [place] [facility] BP Systolic 2019-01-01 14:33:00 125 mm[Hg] [facility] [place] [facility] BP Diastolic 2019-01-01 14:33:00 84 mm[Hg] [facility] [place] [facility] Height 2019-01-01 14:33:00 67 [in_us] [facility] [place] [facility] Weight 2019-01-01 14:33:00 216.6 [lb_av] [facility] [place] [facility] Body Mass Index 2019-01-01 14:33:00 33.92 kg/m2 [facility] Calculated [place] [facility] Temperature 2019-01-01 14:33:00 98.8 [degF] [facility] [place] [facility] Heart Rate 2019-01-01 14:33:00 85 /min [facility] [place] [facility] BP Systolic 2018-03-11 14:40:00 137 mm[Hg] [facility] [place] [facility] BP Diastolic 2018-03-11 14:40:00 80 mm[Hg] [facility] [place] [facility] Weight 2018-03-11 14:40:00 210 [lb_av] [facility] [place] [facility] Temperature 2018-03-11 14:40:00 98.7 [degF] [facility] [place] [facility] Heart Rate 2018-03-11 14:40:00 97 /min [facility] [place] [facility] Procedures Procedure Date / Time Performed Performing Clinician [facility] NOTICE OF PRIVACY 2021-12-05 23:40:43 Doctor Unassigned, No [facility] Name [facility] Branch CONSENT/REFUSAL FOR 2021-12-05 23:40:11 Doctor Unassigned, [facility] AND Name Medical Branch TREATMENT US, abdomen + pelvis 2021-05-17 00:00:00 [place] [facility] MAMMO, screening, 2021-04-13 00:00:00 [facility] digital, bilateral Health Outrea ch Program Section [facility] Plan of Care Planned Activity Planned Date Details Comments Source Future Scheduled 2021-05-18 lipid panel, serum [place] [facility] 00:00:00 [code = lipid Health Outreac h panel, serum] Program Future Scheduled 2021-05-18 CBC w/ auto diff [place] [facility] 00:00:00 [code = CBC w/ Health Outrea ch auto diff] Program Future Scheduled 2021-05-18 rf (rheumatoid [facility] Test 00:00:00 factor), serum Health Outrea ch [code = rf Program (rheumatoid factor), serum] Future Scheduled 2021-05-18 OSMANI (antinuclear [place] [facility] 00:00:00 antibodies) Health Outreach screen, serum Program [code = OSMANI (antinuclear antibodies) screen, serum] Encounters Start End Encounter Admission Attending Care Care Encounter Source Date/Time Date/Time Type Type Clinicians Facility Department ID 2021-12-05 2021-12-05 Emergency X IAN [facility] ERT [id number] Univers 17:59:00 19:50:00 KAVON hassan [facility] 2021-12-05 2021-12-05 Emergency Ian [facility] [id number] Univers 17:59:00 19:50:00 Kavon [id number] [id number] [place] [address] Branch 2021-08-02 2021-08-02 Outpatient Nguyen_Tho [facility] [id number] [place] 01:20:00 01:20:00 [id number] [facility] 2021-06-28 2021-06-28 Outpatient Nguyen_Tho [facility] [id number] [place] 12:58:00 12:58:00 [id number] [facility] 2021-05-24 2021-05-24 Outpatient Nguyen_Tho [facility] [id number] [place] 12:36:00 12:36:00 [id number] [facility] 2021-05-17 2021-05-17 Outpatient Nguyen_Tho [facility] [id number] [place] 05:02:00 05:02:00 [id number] [facility] 2021-05-17 2021-05-17 [facility] [place] - [id number] M atagor 00:00:00 00:00:00 Tracy Rose da RISK CONTROL ANALYST-LABORATORY ANIMAL CARE VETERINARIAN-C: [facility] E[facility] 1700 HOP - [facility] [place], [facility] [id number] Pamela zepeda , Ph. 2021-05-11 2021-05-11 Outpatient Nguyen_Tho [facility] [id number] [place] 08:59:00 08:59:00 [id number] [facility] 2021-05-102021-05-10 Outpatient Nguyen_Tho [facility] [id number] [place] 09:46:00 09:46:00 [id number] [facility] 2021-04-20 2021-04-20 Outpatient [facility] [id number] [place] 01:03:00 01:03:00 [id number] [facility] 2021-04-14 2021-04-14 Outpatient [facility] [id number] [place] 11:32:00 11:32:00 [id number] [facility] 2021-04-13 2021-04-13 Outpatient [facility] [id number] [place] 04:45:00 04:45:00 [id number] [facility] 2021-04-13 2021-04-13 [facility] [place] - [id number] M at[place]or 00:00:00 00:00:00 Tracy Rose da RISK CONTROL ANALYST-LABORATORY ANIMAL CARE VETERINARIAN-C: [facility] [address] [facility] [address], [facility] [phone] [facility] , Ph. 2021-04-12 2021-04-12 Outpatient [facility] [id number] [place] 03:46:00 03:46:00 [id number] [facility] 2021-04-11 2021-04-11 Outpatient [facility] [id number] [place] 02:02:00 02:02:00 [id number] [facility] 2019-01-01 2019-01-01 JOLIE [facility] [id number] Univers 14:00:00 14:00:00 t; Rosanne SANTIAGO Surgery [facility] M.D. ans 2018-03-28 2018-03-28 JOLIE Rodriguez [id number] Univers 13:15:00 13:15:00 t; SHE ALDANA ity o Rosanne Reinoso M.D. ans 2018-03-11 2018-03-11 Appointmen SHANI [facility] [id number] Univers 14:00:00 14:00:00 t; Rosanne SANTIAGO Surgery [facility] M.D. ans Results This patient has no known results.
--- NOTE | 2022-03-22 02:19 | EDPHYS ---
Physician Documentation [facility] Name: Karena Barron Age: 41 yrs Sex: Female : 1980 Arrival Date: 03/21/2022 Time: 23:13 Bed 11 Private MD: ED Physician Joe Lawrence HPI: 03/22 02:11 This 41 yrs old Black Female presents to ER via Unassigned with complaints of Toothache.bright 02:11 The patient presents with pain, redness, swelling. The problem is located in the upper bright right first molar. Onset: The symptoms/episode began/occurred 2 day(s) ago. Duration: The symptoms are continuous, and are steadily getting worse. Modifying factors: The symptoms are alleviated by nothing, the symptoms are aggravated by chewing, cold fluids, food. Severity of symptoms: At their worst the symptoms were mild, moderate, in the emergency department the symptoms are unchanged. The patient has experienced similar episodes in the past, a few times. Historical: - Allergies: 02:00 unknown pain medication; vc1 - PMHx: 04:47 Depression; hydranitis suppurativa; vc1 - Immunization history:: Adult Immunizations up to date. - Social history:: Smoking status: Patient denies any tobacco usage or history of. - Family history:: not pertinent. ROS: 02:11 Constitutional: Negative for fever, chills, and weight loss, Eyes: Negative for injury, bright pain, redness, and discharge, Neck: Negative for injury, pain, and swelling, Cardiovascular: Negative for chest pain, palpitations, and edema, Respiratory: Negative for shortness of breath, cough, wheezing, and pleuritic chest pain, Abdomen/GI: Negative for abdominal pain, nausea, vomiting, diarrhea, and constipation, Back: Negative for injury and pain, : Negative for injury, bleeding, discharge, and swelling, MS/Extremity: Negative for injury and deformity, Skin: Negative for injury, rash, and discoloration, Neuro: Negative for headache, weakness, numbness, tingling, and seizure, Psych: Negative for depression, anxiety, suicide ideation, homicidal ideation, and hallucinations, Allergy/Immunology: Negative for hives, rash, and allergies, Endocrine: Negative for neck swelling, polydipsia, polyuria, polyphagia, and marked weight changes, Hematologic/Lymphatic: Negative for swollen nodes, abnormal bleeding, and unusual bruising. 02:11 ENT: Positive for Teeth pain Exam: 02:11 Constitutional: This is a well developed, well nourished patient who is awake, alert, bright and in no acute distress. Head/Face: Normocephalic, atraumatic. Eyes: Pupils equal round and reactive to light, extra-ocular motions intact. Lids and lashes normal. Conjunctiva and sclera are non-icteric and not injected. Cornea within normal limits. Periorbital areas with no swelling, redness, or edema. Neck: Trachea midline, no thyromegaly or masses palpated, and no cervical lymphadenopathy. Supple, full range of motion without nuchal rigidity, or vertebral point tenderness. No Meningismus. Chest/axilla: Normal chest wall appearance and motion. Nontender with no deformity. No lesions are appreciated. Cardiovascular: Regular rate and rhythm with a normal S1 and S2. No gallops, murmurs, or rubs. Normal PMI, no JVD. No pulse deficits. Respiratory: Lungs have equal breath sounds bilaterally, clear to auscultation and percussion. No rales, rhonchi or wheezes noted. No increased work of breathing, no retractions or nasal flaring. Abdomen/GI: Soft, non-tender, with normal bowel sounds. No distension or tympany. No guarding or rebound. No evidence of tenderness throughout. Back: No spinal tenderness. No costovertebral tenderness. Full range of motion. Skin: Warm, dry with normal turgor. Normal color with no rashes, no lesions, and no evidence of cellulitis. MS/ Extremity: Pulses equal, no cyanosis. Neurovascular intact. Full, normal range of motion. Neuro: Awake and alert, GCS 15, oriented to person, place, time, and situation. Cranial nerves II-XII grossly intact. Motor strength 5/5 in all extremities. Sensory grossly intact. Cerebellar exam normal. Normal gait. Psych: Awake, alert, with orientation to person, place and time. Behavior, mood, and affect are within normal limits. 02:11 ENT: Mouth: Oral mucosa: moist, Gums: reddened, Tongue: is normal, abscess, is not appreciated, drooling, is not appreciated. Vital Signs: 01:15 BP 148 / 86; Pulse 86; Resp 20; Temp 98.4; Pulse Ox 100% on R/A; Weight 106.59 kg; vc1 Height 5 ft. 3 in. (160.02 cm); Pain 10/10; 02:00 BP 136 / 84; Pulse 84; Resp 20; Pulse Ox 100% on R/A; vc1 01:15 Body Mass Index 41.63 (106.59 kg, 160.02 cm) vc1 MDM: 01:18 Patient medically screened. bright 02:14 Differential diagnosis: dental caries, gingivitis, dental abscess. Data reviewed: vital bright signs, nurses notes. Data interpreted: lacing presser: not applicable for this patient encounter. rate is 80 beats/min. Counseling: I had a detailed discussion with the patient and/or guardian regarding:. Administered Medications: 02:26 Drug: Clindamycin 300 mg Route: PO; vc1 02:27 Drug: Clindamycin 600 mg {Note: 300 mg right hip, 300 mg left hip.} Route: IM; Site: [facility] Other; 02:27 Drug: [place] (HYDROcodone-acetaminophen) 10 mg-325 mg 1 tabs Route: PO; vc1 Disposition Summary: 03/22/22 02:18 Discharge Ordered Location: Home bright Problem: new bright Symptoms: have improved bright Condition: Stable bright Diagnosis - Dental caries, unspecified - acute pain bright Followup: bright - With: Kip Tierney DDS - When: 2 - 3 days - Reason: Recheck today's complaints, Continuance of care, Re-evaluation by your physician Discharge Instructions: - Discharge Summary Sheet bright - Dental Caries, Adult bright - Dental Pain bright - Dental Pain, [id number] bright - Diet and Dental Disease bright - Dental Caries, Adult, [id number] bright Forms: - Medication Reconciliation Form bright - Thank You Letter bright - Antibiotic Education bright - Prescription Opioid Use bright Prescriptions: - Clindamycin HCl 300 mg Oral Capsule - take 1 capsule by ORAL route every 6 hours for 10 days; 40 capsule; Refills: 0, bright Product Selection Permitted - Tylenol-Codeine #3 300 mg-30 mg Oral - take 2 tablet by ORAL route every 6 hours; 20 tablet; Refills: 0, Product bright Selection Permitted Signatures: Joe Lawrence MD MD cha Calcote, Vanessa RN RN vc1 Corrections: (The following items were deleted from the chart) 04:49 04:47 Allergies: unknown pain medication; 1 [facility] 04:49 04:47 Immunization history: Adult Immunizations up to date, 1 [facility] 49 04:47 Social history: Smoking status: Patient denies any tobacco usage or history of. 1 1
[2022-03-22] MEDS ORDERED: CLINDAMYCIN IV 150 MG/ML (4 mL) VIAL ONE (02:22)
[2022-03-22] MEDS ORDERED: HYDROCODONE/APAP 10/325 TAB ONE (02:22)
--- NOTE | 2022-03-22 02:45 | ER ---
Nurse's Notes [facility] Name: Karena Barron Age: 41 yrs Sex: Female : 1980 Arrival Date: 03/21/2022 Time: 23:13 Bed 11 Private MD: Diagnosis: Dental caries, unspecified-acute pain Presentation: 03/22 01:15 Chief complaint: Patient states: " I have an appointment with the dentist to vc1 have my two bottom molars extracted but it just hurts so bad.". Coronavirus screen: At this time, the client does not indicate any symptoms associated with coronavirus-19. Ebola Screen: No symptoms or risks identified at this time. 01:15 Method Of Arrival: Ambulatory vc1 01:15 Initial Sepsis Screen: Does the patient meet any 2 criteria? No. Patient's initial vc1 sepsis screen is negative. Does the patient have a suspected source of infection? Yes: Other: infected tooth. Risk Assessment: Do you want to hurt yourself or someone else? Patient reports no desire to harm self or others. Onset of symptoms is unknown. 01:15 Acuity: TATY 4 vc1 Triage Assessment: 02:00 General: Appears in no apparent distress. uncomfortable, Behavior is calm, cooperative, vc1 appropriate for age. Pain: Complains of pain in upper right first molar. EENT: Reports pain in upper right first molar. Neuro: No deficits noted. Cardiovascular: No deficits noted. Historical: - Allergies: 02:00 unknown pain medication; vc1 - PMHx: 04:47 Depression; hydranitis suppurativa; vc1 - Immunization history:: Adult Immunizations up to date. - Social history:: Smoking status: Patient denies any tobacco usage or history of. - Family history:: not pertinent. Screenin:15 Abuse screen: Denies threats or abuse. Nutritional screening: No deficits noted. vc1 Tuberculosis screening: No symptoms or risk factors identified. Fall Risk None identified. Assessment: 01:30 Reassessment: See triage assessment. vc1 02:30 Reassessment: Patient and/or family updated on plan of care and expected duration. Pain vc1 level reassessed. Patient is alert, oriented x 3, equal unlabored respirations, skin warm/dry/pink. Vital Signs: 01:15 BP 148 / 86; Pulse 86; Resp 20; Temp 98.4; Pulse Ox 100% on R/A; Weight 106.59 kg; vc1 Height 5 ft. 3 in. (160.02 cm); Pain 10/10; 02:00 BP 136 / 84; Pulse 84; Resp 20; Pulse Ox 100% on R/A; vc1 01:15 Body Mass Index 41.63 (106.59 kg, 160.02 cm) vc1 ED Course: 03/21 23:13 Patient arrived in ED. kz 03/22 01:15 Arm band placed on right wrist. vc1 01:18 Joe Lawrence MD is Attending Physician. bright 02:16 Kip Tierney DDS is Referral Physician. [facility] 02:26 Tere Lala, RN is Primary Nurse. vc1 02:30 No provider procedures requiring assistance completed. Patient did not have IV access vc1 during this emergency room visit. 02:40 Patient has correct armband on for positive identification. Bed in low position. Call vc1 light in reach. Side rails up X2. 04:47 Triage completed. vc1 Administered Medications: 02:26 Drug: Clindamycin 300 mg Route: PO; vc1 02:27 Drug: Clindamycin 600 mg {Note: 300 mg right hip, 300 mg left hip.} Route: IM; Site: [facility] Other; 02:27 Drug: [place] (HYDROcodone-acetaminophen) 10 mg-325 mg 1 tabs Route: PO; vc1 Outcome: 02:18 Discharge ordered by . [facility] 02:40 Discharged to home ambulatory. vc1 02:40 Condition: good 02:40 Discharge instructions given to patient, Instructed on discharge instructions, follow up and referral plans. Demonstrated understanding of instructions, follow-up care, medications, Prescriptions given X 2. 02:45 Patient left the ED. vc1 Signatures: Joe Lawrence MD MD cha Calcote, Vanessa, RN RN vc1 Miracle Lopes Corrections: (The following items were deleted from the chart) 04:49 04:47 Allergies: unknown pain medication; vc1 vc1 04:49 04:47 Immunization history: Adult Immunizations up to date, vc1 vc1 04:49 04:47 Social history: Smoking status: Patient denies any tobacco usage or history of. vc1 vc1
== END 2022-03-22 02:45 | disposition home or self-care (01) ==
LOC: ER 23:12
DX: K02.9 Dental caries, unspecified (principal); Z88.6 Allergy status to analgesic agent
CPT/HCPCS: 96372; 99283; S0077

== ENCOUNTER 2022-12-17 17:53 | Emergency (ER) | payer OTHER, SELFPAY ==
--- OUTSIDE RECORDS SUMMARY | 2022-12-17 17:57 | XMS REPORT | Continuity of Care Document ---
:1980 Author Organization [facility] t Address [address] [place] [address] Care Team Providers Name Role Phone PCP, PATIENT DOES NOT HAVE A Primary Care Physician UnavailDmitri Flood MD Attending Clinician Karolyn Andrade MD Attending Clinician Tennille Clements DO Attending Clinician KAVON SOSA Attending Clinician Unavailable Kavon Sosa MD Attending Clinician Vernon Attending Clinician Unavailable RADHA Attending Clinician Unavailable JACK MCLEOD M.D. Attending Clinician Unavailable SHE ALDANA M.D. Attending Clinician Unavailable KAROLYN ANDRADE Admitting Clinician Unavailable Vernon Admitting Clinician Unavailable RADHA Admitting Clinician Unavailable Payers Payer Name Policy Type Policy Number Effective Date Expiration Date S ource Problems Condition Condition Condition Status Onset Resolution Last Treating Co mments Source Name Details Category Date Date Treatment Clinician Date Head Head Disease Active [facility] injury, injury, 708 st acute, acute, 00:00: Hospita initial initial 00 l encounter encounter Neck Neck Disease Active [facility] muscle muscle 05-26 st spasm spasm 00:00: Hospita 00 l Multiple Multiple Disease Active [facility] thyroid thyroid 05-26 st nodules nodules 00:00: Hospita 00 l Syncope, Syncope, Disease Active [facility] unspecifie unspecifie 7 st d syncope d syncope 00:00: Hosp kj type type 00 l Obesity Obesity Problem Active [place] [facility] Generalize Generalize Problem Active M [place] anxiety d Anxiety da disorder Disorder [facility] Antepartum Antepartum Problem Active U T elderly elderly Physici multigravi multigravi an s da da Macrosomia Macrosomia Problem Active U T affecting affecting Phys ici management management an s of mother, of mother, antepartum antepartum Hidradenit Hidradenit Problem Active U T is is Physici suppurativ suppurativ an s a a Mass of Mass of Problem Active [facility] both both Physici axillae axillae ans Allergies, Adverse Reactions, Alerts Allergy Allergy Status Severity Reaction(s) Onset Inactive Treating Comm ents Source Name Type Date Date Clinician NO KNOWN Drug Active Univers ALLERGIE Class ity of S [facility] Family History Family Member Diagnosis Comments Start Date Stop Date Source Mother Family history of [facility] malignant neoplasm of female breast Father Family history of [facility] lung cancer Natural mother Hyperlipidemia [facility] Natural mother Breast cancer [facility] Natural mother Cancer [facility] Natural mother Diabetes [facility] Natural father Cancer [facility] [place] Social History Social Habit Start Date Stop Date Quantity Comments Source History of Cigarette Smoker [facility] tobacco use Exposure to Not sure [facility]-CoV[facility]2 [facility] [place] Tobacco use and 2022-05-25 2022-05-25 Smokeless tobacco [facility] exposure 00:00:00 00:00:00 non-user Alcohol intake 2022-05-25 2022-05-25 Ex-drinker [facility] 00:00:00 00:00:00 (finding) Alcohol Comment 2022-05-25 2022-05-25 1 or 2 drinks per [facility] 00:00:00 00:00:00 month Sex [birth year] At [birth year] [facility] 00:00:00 00:00:00 Smoking Status Start Date Stop Date Source Former Smoker [place] [facility] Unknown if ever smoked [facility] Occasional tobacco smoker 2022-05-25 00:00:00 [facility] Medications Ordered Filled Start Stop Current Ordering Indication Dosage Frequency Signature Comments Components Source Medication Medication Date Date Medication? Clinician (SIG) Name Name gabapentin 2021- No 300mg [id number] Take 1 [facility] (NEURONTIN) 05-[id number] 300 mg 00:00: 04:59 3D (300 mg Hospita capsule 00 :00 total) by l mouth 3 (three) times a day for 30 days. cyclobenzap 2021- No 10mg Q.[id number] Take 1 [facility] rine 05-26 [id number] tablet (10 st (FLEXERIL) 00:00: 04:59 3D mg total) H ospita 10 mg 00 :00 by mouth 3 l tablet (three) times a day as needed for muscle spasms for up to 30 days. atorvastati 2021- No 40mg QD Take 1 [facility] n (Lipitor) 05-26 tablet (40 s t 40 mg 00:00: 04:59 mg total) Hospit a tablet 00 :00 by mouth l daily for 30 days. gabapentin 2021-2021- No 300mg Q.[id number] Take 1 [facility] (NEURONTIN) 05-[id number] 300 mg 00:00: 04:59 3D (300 mg Hospita capsule 00 :00 total) by l mouth 3 (three) times a day for 30 days. cyclobenzap 2021-2021- No 10mg Q.[id number] Take 1 [facility] rine 05-26 [id number] tablet (10 st (FLEXERIL) 00:00: 04:59 3D mg total) H ospita 10 mg 00 :00 by mouth 3 l tablet (three) times a day as needed for muscle spasms for up to 30 days. atorvastati 2021- 202- No 40mg QD Take 1 [facility] n (Lipitor) 05-26 tablet (40 s t 40 mg 00:00: 04:59 mg total) Hospit a tablet 00 :00 by mouth l daily for 30 days. gabapentin 2021-0 2021- No 300mg Q.[id number] Take 1 [facility] (NEURONTIN) 05-[id number] 300 mg 00:00: 04:59 3D (300 mg Hospita capsule 00 :00 total) by l mouth 3 (three) times a day for 30 days. cyclobenzap 202-0 2022- No 10mg Q.[id number] Take 1 [facility] rine 05-26 [id number] tablet (10 st (FLEXERIL) 00:00: 04:59 3D mg total) H ospita 10 mg 00 :00 by mouth 3 l tablet (three) times a day as needed for muscle spasms for up to 30 days. atorvastati 2021-0 2022- No 40mg QD Take 1 Met [facility] n (Lipitor) 05-26 tablet (40 s t 40 mg 00:00: 04:59 mg total) Hospit a tablet 00 :00 by mouth l daily for 30 days. gabapentin 2021-0 202- No 300mg Q.[id number] Take 1 [facility] (NEURONTIN) 05-[id number] 300 mg 00:00: 04:59 3D (300 mg Hospita capsule 00 :00 total) by l mouth 3 (three) times a day for 30 days. cyclobenzap 2021-2021- No 10mg Q.[id number] Take 1 [facility] rine 05-26 [id number] tablet (10 st (FLEXERIL) 00:00: 04:59 3D mg total) H ospita 10 mg 00 :00 by mouth 3 l tablet (three) times a day as needed for muscle spasms for up to 30 days. atorvastati 2021-0 2022- No 40mg QD Take 1 Met [facility] n (Lipitor) 05-26 tablet (40 s t 40 mg 00:00: 04:59 mg total) Hospit a tablet 00 :00 by mouth l daily for 30 days. gabapentin 2021-0 2022- No 300mg Q.[id number] Take 1 [facility] (NEURONTIN) 05-[id number] 300 mg 00:00: 04:59 3D (300 mg Hospita capsule 00 :00 total) by l mouth 3 (three) times a day for 30 days. cyclobenzap 202-0 2022- No 10mg Q.[id number] Take 1 [facility] rine 05-26 [id number] tablet (10 st (FLEXERIL) 00:00: 04:59 3D mg total) H ospita 10 mg 00 :00 by mouth 3 l tablet (three) times a day as needed for muscle spasms for up to 30 days. atorvastati 2021- No 40mg QD Take 1 [facility] (Lipitor) 05-26 tablet (40 s t 40 mg 00:00: 04:59 mg total) Hospit a tablet 00 :00 by mouth l daily for 30 days. gabapentin 2021- No 300mg Q.[id number] Take 1 [facility] (NEURONTIN) 05-[id number] 300 mg 00:00: 04:59 3D (300 mg Hospita capsule 00 :00 total) by l mouth 3 (three) times a day for 30 days. cyclobenzap No 10mg Q.[id number] Take 1 [facility] rine 05-26 [id number] tablet (10 st (FLEXERIL) 00:00: 04:59 3D mg total) H ospita 10 mg 00 :00 by mouth 3 l tablet (three) times a day as needed for muscle spasms for up to 30 days. atorvastati No 40mg QD Take 1 [facility] (Lipitor) 05-26 tablet (40 s t 40 mg 00:00: 04:59 mg total) Hospit a tablet 00 :00 by mouth l daily for 30 days. doxycycline doxycycline No 1capsul Q12H doxycyclin [place] [...] Date Status Commen ts Source Name Name [facility] 2018-11-19 Completed [place] 00:00:00 [facility] 2018-11-19 Completed [place] 00:00:00 [facility] 2018-11-19 Completed [facility] 00:00:00 [facility] 2018-11-19 Completed [facility] 00:00:00 [facility] 2018-11-19 Completed [facility] 00:00:00 [facility] 2018-11-19 Completed [facility] 00:00:00 [facility] 2018-11-19 Completed [facility] 00:00:00 [facility] 2015-06-25 Completed [facility] 00:00:00 [facility] 2015-06-25 Completed [facility] 00:00:00 [facility] 2015-06-25 Completed [facility] 00:00:00 [facility] 2015-06-25 Completed [facility] 00:00:00 [facility] 2015-06-25 Completed [facility] 00:00:00 [facility] 2015-06-25 Completed [facility] 00:00:00 Hospital Vital Signs Vital Name Observation Time Observation Value Comments Source Systolic blood 2021-12-05 23:50:00 145 mm[Hg] Univer sity of pressure [facility] Diastolic blood 2021-12-05 23:50:00 94 mm[Hg] Unive rsity [facility] Heart rate 2021-12-05 23:50:00 92 /min [facility] Body temperature 2021-12-05 23:50:00 37.22 Ayesha [facility] Respiratory rate 2021-12-05 23:50:00 18 /min [facility] Body weight 2021-12-05 23:50:00 95.255 kg [facility] Oxygen saturation in 2021-12-05 23:50:00 99 /min [facility] blood by [facility] Pulse oximetry Branch BP Diastolic 2021-05-17 00:00:00 78 mm[Hg] [facility] Height 2021-05-17 00:00:00 66 [in_i] [place] [facility] BMI (Body Mass 2021-05-17 00:00:00 34.2 kg/m2 [facility] patient consumer marketer Index) [facility] BP Systolic 2021-05-17 00:00:00 112 mm[Hg] [place] [facility] Body Weight 2021-05-17 00:00:00 3392 [oz_av] [place] [facility] BP Diastolic 2021-04-13 00:00:00 78 mm[Hg] [place] [facility] Height 2021-04-13 00:00:00 66 [in_i] [place] [facility] BMI (Body Mass 2021-04-13 00:00:00 33.9 kg/m2 [facility] patient consumer marketer Index) [facility] BP Systolic 2021-04-13 00:00:00 116 mm[Hg] [place] [facility] Body Weight 2021-04-13 00:00:00 3360 [oz_av] [place] [facility] Systolic blood 2022-05-26 18:15:00 136 mm[Hg] [facility] pressure Diastolic blood 2022-05-26 18:15:00 72 mm[Hg] [facility] pressure Heart rate 2022-05-26 15:31:53 69 /min [facility] Body temperature 2022-05-26 15:31:13 36.33 Ayesha [facility] Respiratory rate 2022-05-26 15:31:13 18 /min [facility] Oxygen saturation in 2022-05-26 15:31:13 98 /min [facility] Arterial blood by Pulse oximetry Body height 2022-05-25 05:57:00 170.2 cm [facility] Body weight 2022-05-24 16:36:00 95.255 kg [facility] BMI 2022-05-24 16:36:00 32.89 kg/m2 [facility] BP Systolic 2019-01-01 14:33:00 125 mm[Hg] [facility] BP Diastolic 2019-01-01 14:33:00 84 mm[Hg] [facility] Height 2019-01-01 14:33:00 67 [in_us] [facility] Weight 2019-01-01 14:33:00 216.6 [lb_av] [facility] Body Mass Index 2019-01-01 14:33:00 33.92 kg/m2 [facility] Calculated Temperature 2019-01-01 14:33:00 98.8 [degF] [facility] Heart Rate 2019-01-01 14:33:00 85 /min [facility] BP Systolic 2018-03-11 14:40:00 137 mm[Hg] [facility] BP Diastolic 2018-03-11 14:40:00 80 mm[Hg] [facility] Weight 2018-03-11 14:40:00 210 [lb_av] [facility] Temperature 2018-03-11 14:40:00 98.7 [degF] [facility] Heart Rate 2018-03-11 14:40:00 97 /min [facility] Procedures Procedure Date / Time Performing Clinician Source Performed ZZCOVID-19 ANTI-SPIKE IGG 2022-05-26 10:51:00 Willy Jones [facility] ANTIBODY TITER Lan BRANDON COMPLETE BLD COUNT 2022-05-26 10:51[facility]OL[facility]EL 2022-05-26 10:51:00 [facility] Erons ZZCOVID-19 SEROLOGY 2022-05-26 10:51:00 Willy Jones [facility] PATIENT SURVEILLANCE Lan ESTIMATED GFR 2022-05-26 10:51:00 [facility] TTE COMPLETE, WO 2022-05-25 14:22:00 Dmitri Cobian H ospital CONTRAST, W DOPPLER ([id number]) HC COMPLETE BLD COUNT 2022-05-25 12:02:00 [facility] W/AUTO DIFF Erons BASIC METABOLIC PANEL 2022-05-25 12:02:00 Unuigbe [facility] Erons ESTIMATED GFR 2022-05-25 12:02:00 [facility] ospital Erons US CAROTID DUPLEX 2022-05-25 02:19:00 [facility] BILATERAL [facility]ons HEMOGLOBIN A1C 2022-05-25 01:52:00 [facility] LIPID PANEL 2022-05-25 01:52:00 [facility] LACTIC ACID LEVEL, SEPSIS 2022-05-24 23:16:00 [facility] REPEAT 2X EVERY 3 HOURS TROPONIN T 2022-05-24 23:16:[address] THORACIC SPINE WO 2022-05-24 22:19:01 [facility] CERVICAL SPINE WO 2022-05-24 22:18:51 Mango Dmitri [facility] CONTRAST LACTIC ACID LEVEL, SEPSIS 2022-05-24 19:40:00 CobianDmitri crow [facility] - NOW AND REPEAT 2X EVERY 3 HOURS TROPONIN T 2022-05-24 19:40:00 Dmitri Cobian spital URINALYSIS SCREEN AND 2022-05-24 18:36:00 CobianDmitri crow [facility] MICROSCOPY, WITH REFLEX TO CULTURE LACTIC ACID LEVEL, SEPSIS 2022-05-24 17:43:00 Dmitri Cobian [facility] - NOW AND REPEAT 2X EVERY 3 HOURS VENOUS BLOOD GAS 2022-05-24 17:43:00 Dmitri Cobian ospital AMMONIA LEVEL 2022-05-24 17:43:00 Dmitri Cobian spital HC COMPLETE BLD COUNT 2022-05-24 17:43:00 CobianDmitri crow [facility] W/AUTO DIFF COMPREHENSIVE METABOLIC 2022-05-24 17:43:00 Dmitri Cobian [facility] PANEL TROPONIN T 2022-05-24 17:43:00 Dmitri Cobian spital B NATRIURETIC PEPTIDE 2022-05-24 17:43:00 Dmitri Cobian [facility] HCG QUALITATIVE, SERUM 2022-05-24 17:43:00 [facility] SCREEN ESTIMATED GFR 2022-05-24 17:43:00 Dmitri Cobian spital PHOSPHORUS LEVEL 2022-05-24 17:43:00 Dmitri Cobian H ospital MAGNESIUM LEVEL 2022-05-24 17:43:[address] HEAD WO CONTRAST 2022-05-24 17:37[facility]W PORTABLE 2022-05-24 17:01:46 [facility] XR SHOULDER 2+ VW LEFT 2022-05-24 17:00:29 [facility] ECG ED PRELIMINARY 2022-05-24 16:54:56 [place] [facility] INTERPRETATION ECG 12-LEAD 2022-05-24 16:30:37 Dmitri Cobian spital NOTICE OF PRIVACY 2021-12-05 23:40:43 Doctor Unassigned, [facility] PRACTICES [facility] CONSENT/REFUSAL FOR 2021-12-05 23:40:11 Doctor Unassigned, [facility] DIAGNOSIS AND TREATMENT [facility] US, abdomen + pelvis 2021-05-17 00:00:00 [place] [facility] MAMMO, screening, 2021-04-13 00:00:00 [place] [facility] digital, bilateral Health Outrea ch Program Section [place] [facility] Plan of Care Planned Activity Planned Date Details Comments Source Future Scheduled 2022-12-17 COVID-19 VACCINE (#1) [facility] Test 17:55:43 [code = COVID-19 VACCINE (#1)] Future Scheduled 2022-12-17 Pneumococcal Vaccine: [facility] Test 17:55:43 Pediatrics (0 to 5 Years) and At-Risk Patients (6 to 64 Years) (1 - PCV) [code = Pneumococcal Vaccine: Pediatrics (0 to 5 Years) and At-Risk Patients (6 to 64 Years) (1 - PCV)] Future Scheduled 2022-12-17 Hepatitis C screening [facility] Test 17:55:43 (procedure) [code = 979191426] Future Scheduled 2022-12-17 Screening for [facility] Test 17:55:43 malignant neoplasm of cervix (procedure) [code = 216940482] Future Scheduled 2022-12-17 BREAST CANCER [facility] Test 17:55:43 SCREENING [code = BREAST CANCER SCREENING] Future Scheduled 2022-12-17 INFLUENZA VACCINE [facility] Test 17:55:43 [code = INFLUENZA VACCINE] Future Scheduled 2022-10-16 HEPATITIS B VACCINES [facility] Test 11:32:14 (1 of 3 - 3-dose series) [code = HEPATITIS B VACCINES (1 of 3 - 3-dose series)] Future Scheduled 2022-10-16 COVID-19 VACCINE (#1) [facility] Test 11:32:14 [code = COVID-19 VACCINE (#1)] Future Scheduled 2022-10-16 Pneumococcal Vaccine: [facility] Test 11:32:14 Pediatrics (0 to 5 Years) and At-Risk Patients (6 to 64 Years) (1 - PCV) [code = Pneumococcal Vaccine: Pediatrics (0 to 5 Years) and At-Risk Patients (6 to 64 Years) (1 - PCV)] Future Scheduled 2022-10-16 Hepatitis C screening [facility] Test 11:32:14 (procedure) [code = 911833436] Future Scheduled 2022-10-16 Screening for [facility] Test 11:32:14 malignant neoplasm of cervix (procedure) [code = 069866428] Future Scheduled 2022-10-16 BREAST CANCER [facility] Test 11:32:14 SCREENING [code = BREAST CANCER SCREENING] Future Scheduled 2022-10-16 INFLUENZA VACCINE [facility] Test 11:32:14 [code = INFLUENZA VACCINE] Future Scheduled 2022-10-11 HEPATITIS B VACCINES [facility] Test 11:09:20 (1 of 3 - 3-dose series) [code = HEPATITIS B VACCINES (1 of 3 - 3-dose series)] Future Scheduled 2022-10-11 COVID-19 VACCINE (#1) [facility] Test 11:09:20 [code = COVID-19 VACCINE (#1)] Future Scheduled 2022-10-11 Pneumococcal Vaccine: [facility] Test 11:09:20 Pediatrics (0 to 5 Years) and At-Risk Patients (6 to 64 Years) (1 - PCV) [code = Pneumococcal Vaccine: Pediatrics (0 to 5 Years) and At-Risk Patients (6 to 64 Years) (1 - PCV)] Future Scheduled 2022-10-11 Hepatitis C screening [facility] Test 11:09:20 (procedure) [code = 602681384] Future Scheduled 2022-10-11 Screening for [facility] Test 11:09:20 malignant neoplasm of cervix (procedure) [code = 828935089] Future Scheduled 2022-10-11 [facility]AST [facility]CER [facility] Test 11:09:20 SCREENING [code = BREAST CANCER SCREENING] Future Scheduled 2022-10-11 INFLUENZA VACCINE [facility] Test 11:09:20 [code = INFLUENZA VACCINE] Future Scheduled 2022-09-21 Hepatitis C screening [facility] Test 10:22:35 (procedure) [code = 331710539] Future Scheduled 2022-09-21 Screening for [facility] Test 10:22:35 malignant neoplasm of cervix (procedure) [code = 071482932] Future Scheduled 2022-09-21 BREAST CANCER [facility] Test 10:22:35 SCREENING [code = BREAST CANCER SCREENING] Future Scheduled 2022-09-21 INFLUENZA VACCINE [facility] Test 10:22:35 [code = INFLUENZA VACCINE] Future Scheduled 2022-09-21 HEPATITIS B VACCINES [facility] Test 10:22:35 (1 of 3 - 3-dose series) [code = HEPATITIS B VACCINES (1 of 3 - 3-dose series)] Future Scheduled 2022-09-21 COVID-19 VACCINE (#1) [facility] Test 10:22:35 [code = COVID-19 VACCINE (#1)] Future Scheduled 2022-09-21 Pneumococcal Vaccine: [facility] Test 10:22:35 Pediatrics (0 to 5 Years) and At-Risk Patients (6 to 64 Years) (1 - PCV) [code = Pneumococcal Vaccine: Pediatrics (0 to 5 Years) and At-Risk Patients (6 to 64 Years) (1 - PCV)] Future Scheduled 2022-09-21 Hepatitis C screening [facility] Test 10:22:35 (procedure) [code = 138569880] Future Scheduled 2022-09-21 Screening for [facility] Test 10:22:35 malignant neoplasm of cervix (procedure) [code = 080741653] Future Scheduled 2022-09-21 BREAST CANCER [facility] Test 10:22:35 SCREENING [code = BREAST CANCER SCREENING] Future Scheduled 2022-09-21 INFLUENZA VACCINE [facility] Test 10:22:35 [code = INFLUENZA VACCINE] Future Scheduled 2022-09-21 HEPATITIS B VACCINES [facility] Test 10:22:35 (1 of 3 - 3-dose series) [code = HEPATITIS B VACCINES (1 of 3 - 3-dose series)] Future Scheduled 2022-09-21 COVID-19 VACCINE (#1) [facility] Test 10:22:35 [code = COVID-19 VACCINE (#1)] Future Scheduled 2022-09-21 Pneumococcal Vaccine: [facility] Test 10:22:35 Pediatrics (0 to 5 Years) and At-Risk Patients (6 to 64 Years) (1 - PCV) [code = Pneumococcal Vaccine: Pediatrics (0 to 5 Years) and At-Risk Patients (6 to 64 Years) (1 - PCV)] Future Scheduled 2022-09-07 HEPATITIS B VACCINES [facility] Test 00:15:05 (1 of 3 - 3-dose series) [code = HEPATITIS B VACCINES (1 of 3 - 3-dose series)] Future Scheduled 2022-09-07 COVID-19 VACCINE (#1) [facility] Test 00:15:05 [code = COVID-19 VACCINE (#1)] Future Scheduled 2022-09-07 Pneumococcal Vaccine: [facility] Test 00:15:05 Pediatrics (0 to 5 Years) and At-Risk Patients (6 to 64 Years) (1 - PCV) [code = Pneumococcal Vaccine: Pediatrics (0 to 5 Years) and At-Risk Patients (6 to 64 Years) (1 - PCV)] Future Scheduled 2022-09-07 Hepatitis C screening [facility] Test 00:15:05 (procedure) [code = 893099515] Future Scheduled 2022-09-07 Screening for [facility] Test 00:15:05 malignant neoplasm of cervix (procedure) [code = 839791927] Future Scheduled 2022-09-07 BREAST CANCER [facility] Test 00:15:05 SCREENING [code = BREAST CANCER SCREENING] Future Scheduled 2022-09-07 [facility]ZA [facility]ACCINE [facility] Test 00:15:05 [code = INFLUENZA VACCINE] Future Scheduled 2021-05-18 lipid panel, serum [place] Test 00:00:00 [code = lipid panel, [facility] serum] Outreach Progra m Future Scheduled 2021-05-18 CBC w/ auto diff [code [place] Test 00:00:00 = CBC w/ auto diff] [facility] Outreach Progra m Future Scheduled 2021-05-18 rf (rheumatoid [place] Test 00:00:00 factor), serum [code = [facility] rf (rheumatoid Outreach Prog dinesh factor), serum] Future Scheduled 2021-05-18 [facility] (antinuclear [place] Test 00:00:00 antibodies) screen, [facility] serum [code = OSM[facility] Outreach P rogram (antinuclear antibodies) screen, serum] Encounters Start End Encounter Admission Attending Care Care Encounter Source Date/Time Date/Time Type Type Clinicians Facility Department ID 2022-05-24 2022-05-26 Emergency Dmitri Cobian [id number] [facility] 11:26:00 14:23:00 Lupe Ariasmellissa Amod [id number] 877 [facility] 3.430.2.7 Hospita .[id number] l .8 2022-05-24 2022-05-26 Emergency Dmitri Cobian [id number] [facility] 11:26:00 14:23:00 DarcieKarolyn randall Amod [id number] 877 [facility] 3.430.2.7 Hospita .3.846093 l .8 2022-05-24 2022-05-24 Travel 1.2.840.1 [id number] [facility] 00:00:00 00:00:[id number] 3.430.2.7 0.2.7.3.698 Ho spita .3.664195 084.8 l .8 2022-05-24 2022-05-24 Travel 1.2.840.1 [id number] [facility] 00:00:00 00:00:00 [id number] 350.1.13.43 [id number] 3.430.2.7 0.2.7.3.698 Ho spita .3.689216 084.8 l .8 2021-12-05 2021-12-05 Emergency X [facility] [id number] [facility] 17:59:00 19:50:00 [facility] 2021-12-05 2021-12-05 [facility] [id number] [facility] 17:59:00 19:50:00 [facility] [id number] [facility] 4.2.7.2.686 [facility] [id number] [address] 2021-12-05 2021-12-05 Emergency X [facility] [id number] Univers 17:59:00 17:59:00 [facility] 2021-08-02 2021-08-02 Outpatient Nguyen_o [place] [id number] [place] 01:20:00 01:20:00 [id number] da [facility] 2021-06-28 2021-06-28 Outpatient Nguyen_o [place] [id number] [place] 12:58:00 12:58:00 [id number] [facility] 2021-05-24 2021-05-24 Outpatient Nguyen_o [place] [id number] [place] 12:36:00 12:36:00 [id number] [facility] 2021-05-17 2021-05-17 Tho Nguyen_o 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 2021-05-11 2021-05-11 Outpatient Nguyen_Tho [facility] [id number] [place] 08:59:00 08:59:00 [id number] da [facility] 2021-05-10 2021-05-10 Outpatient Nguyen_Tho [facility] [id number] [place] 09:46:00 09:46:00 [id number] da [facility] 2021-04-20 2021-04-20 Outpatient [facility] [id number] [place] 01:03:00 01:03:00 [id number] da [facility] 2021-04-14 2021-04-14 Outpatient [facility] [id number] [place] 11:32:00 11:32:00 [id number] [facility] 2021-04-13 2021-04-13 Tho [facility] [id number] [place] 00:00:00 00:00:00 Tracy Rose [id number] da 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 2021-04-12 2021-04-[address] [facility] [id number] [place] 03:46:00 03:46:00 [id number] [facility] 2021-04-11 2021-04-[address] [facility] [id number] [place] 02:02:00 02:02:00 [id number] [facility] 2019-01-01 2019-01-01 JOLIE [facility] [id number] [place] 14:00:00 14:00:00 t; Rosanne SANTIAGO Surgery Ph rivas Salgado M.D. 2018-03-28 2018-03-28 JOLIE Rodriguez [facility] [id number] [place] 13:15:00 13:15:00 t; SHE ALDANA, Physi ci Rosanne NOWAK M.D. 2018-03-11 2018-03-11 [facility] SHANIHCA [facility] [id number] [place] 14:00:00 14:00:00 jade SANTIAGO M.D. Surgery Ph rivas Salgado M.D. Results Test Description Test Time Test Comments Results Result Comments Source ECG 12 lead 2022-08-24 03:18:15 Test Item Value Reference Range Interpretation Comme nts Ventricular rate (test code = 253) Atrial rate (test code = 255) CA interval (test code = 266) QRSD interval (test code = 260) QT interval (test code = 264) QTC interval (test code = 265) P axis 1 (test code = 267) QRS axis 1 (test code = 268) T wave axis (test code = 270) EKG impression (test code = 273) Normal sinus rhythm-Normal ECG-No previous ECGs available- [place] [address] [id number] 03:18:15 Test Item Value Reference Range Interpretation Comments Ventricular rate (test code = 253) Atrial rate (test code = 255) CA interval (test code = 266) QRSD interval (test code = 260) QT interval (test code = 264) QTC interval (test code = 265) P axis 1 (test code = 267) QRS axis 1 (test code = 268) T wave axis (test code = 270) EKG impression (test Normal sinus code = 273) rhythm-Normal ECG-No previous ECGs available-Electronica lly Signed By Maria G Miner MD ([id number]) on 08/23/2022 10:18:12 PM [place] [address] [id number] 03:18:15 Test Item Value Reference Range Interpretation Comments Ventricular rate (test code = 253) Atrial rate (test code = 255) CA interval (test code = 266) QRSD interval (test code = 260) QT interval (test code = 264) QTC interval (test code = 265) P axis 1 (test code = 267) QRS axis 1 (test code = 268) T wave axis (test code = 270) EKG impression (test Normal sinus code = 273) rhythm-Normal ECG-No previous ECGs available-Electronica lly Signed By Maria G Miner MD ([id number]) on 08/23/2022 10:18:[address]2022-10-06 03:18:15 Test Item Value Reference Range Interpretation Comments Ventricular rate (test code = 253) Atrial rate (test code = 255) CA interval (test code = 266) QRSD interval (test code = 260) QT interval (test code = 264) QTC interval (test code = 265) P axis 1 (test code = 267) QRS axis 1 (test code = 268) T wave axis (test code = 270) EKG impression (test Normal sinus code = 273) rhythm-Normal ECG-No previous ECGs available-Electronica lly Signed By Maria G Miner MD ([id number]) on 08/23/2022 10:18:[address]2022-10-06 03:18:15 Test Item Value Reference Range Interpretation Comments Ventricular rate (test code = 253) Atrial rate (test code = 255) CA interval (test code = 266) QRSD interval (test code = 260) QT interval (test code = 264) QTC interval (test code = 265) P axis 1 (test code = 267) QRS axis 1 (test code = 268) T wave axis (test code = 270) EKG impression (test Normal sinus code = 273) rhythm-Normal ECG-No previous ECGs available-Electronica lly Signed By Maria G Miner MD ([id number]) on 08/23/2022 10:18:[address]2022-10-06 03:18:15 Test Item Value Reference Range Interpretation Comments Ventricular rate (test code = 253) Atrial rate (test code = 255) CA interval (test code = 266) QRSD interval (test code = 260) QT interval (test code = 264) QTC interval (test code = 265) P axis 1 (test code = 267) QRS axis 1 (test code = 268) T wave axis (test code = 270) EKG impression (test Normal sinus code = 273) rhythm-Normal ECG-No previous ECGs available-Electronica lly Signed By Maria G Miner MD ([id number]) on 08/23/2022 10:18:12 PM [facility] (w Contrast, Strain and 3D if needed)2022-05-26 02:26:27 Test Item Value Reference Interpretation Comments Range Ao Root Diameter 2.87 cm (test code = 3373093484) AoV Area, Vmax (test 2.35 cm2 code = 1008247960) AoV Area, VTI (test 2.28 cm2 code = 3229334692) AoV Mean PG (test mmHg code = 9508388750) AoV Peak PG (test mmHg code = 8606663517) AoV Vmax (test code 1.55 m/s = 9527539583) AoV VTI (test code = 0.30 m 1963191525) IVS,d (test code = 1.04 cm 0.6-0.9 A 1719299712) IVS/LVPW,2D (test code = 8254274996) Left Atrium 3.35 cm Dimension Anterior (test code = 1193592378) LV,d (test code = 4.02 cm 3432145115) LV EF,2D (test code 65.49 % = 8263027561) LV,s (test code = 2.82 cm 0955859510) LVOT area (test code 2.95 cm2 = 0171893074) LVOT Diam,S (test 1.94 cm code = 9852525399) LVOT Vmax (test code 1.33 m/s = 9745381796) LVOT VTI (test code 0.22 m = 9611951069) LVPWD,d (test code = 0.97 cm 0.6-0.9 A 0728010042) TR Vpeak (test code 2.23 m/s = 0981598949) MV E A ratio (test code = 1444159771) TR pk grad (test mmHg code = 4199914643) E wave decelartion msec time (test code = 7518404956) MV Peak A Driss (test 0.47 m/s code = 4269618571) MV valve area p 1/2 4.28 cm2 method (test code = 7567821682) MV Peak E Driss (test 0.89 m/s code = 5048891823) MV stenosis pressure 51.45 ms 1/2 time (test code = 9759126186) LVOT stroke volume 0.65 ml (test code = 3740792357) AV LVOT peak mmHg gradient (test code = 1337719050) Ao Root Diameter 2.87 cm (test code = 9001284079) LV SYS VOL (test 30.00 ml 14-42 code = 4000510776) LV HERRERA VOL (test 70.67 ml 46-106 code = 3604916755) LA area s A4C (test 15.99 cm2 code = 8876262880) LV SV Teich 2D (test 40.67 ml code = 0378072909) LV Vol s Teich PSAX 30.00 ml (test code = 0333847029) LVOT CI (test code = 2.75 l/min/m2 5049216134) LVOT CO (test code = 5.04 l/min 9900925158) LVOT HR for LVOT CO bpm (test code = 2119817989) LVOT SI (test code = 35.65 ml/m2 9526615278) AoV Vmn (test code = 1.03 m/s 4485971558) IVS s 2D (test code 1.38 cm = 4518520173) LV FS Teich 2D (test code = 4392542949) MV AE ratio (test code = 2928424730) LV FS Cube 2D (test code = 2605775245) LVOT Vmn (test code = 4313854796) Aov area Vmn (test 2.42 cm2 code = 5457388740) LVOT mean grad (test mmHg code = 7956747873) MAX Pred HR (test code = 9656177979) 85 of MPHR (test code = 1571011722) Calc MPHR (test code bpm = 3699062094) IVS pct thck PLAX 32.72 % (test code = 9843794699) LV SV Cube 2D (test 42.42 ml code = 5278721481) LV vol d cube 2D 64.78 ml (test code = 9347405414) LV vol s cube 2D 22.36 ml (test code = 4362267344) LVPW pct thck PLAX 46.45 % (test code = 4744182784) LVPW s PLAX (test 1.42 cm code = 7971200515) MV Decel slope (test 6.47 m/s2 code = 3203545902) Pred Exer Dur R1 (test code = 5962964096) Pred METS R1 (test code = 1561072661) LA Vol MOD A4C (test 35.84 ml code = 6392557085) Velocity Ratio 0.86 m/s (V1/V2) (test code = 4689) EF (test code = 58 % 3014497012) E/A ratio (test code = 0603564316) LVOT VTI (CM) (test 22.00 cm code = 7241519063) LA Volume Index 21.7 mL/m2 See_Comment [Automated (test code = message] The 4723687740) system which generated this result transmitted reference range : <=35. The reference range was not used to interpret this result as normal/abnormal . TAPSE (test code = 1.7 cm 4692663889) RA pressure (test mmHg code = 4811713591) RVSP (test code = See_Comment [Automate d 4787473310) message] The system which generated this result transmitted reference range : 40.00 mmHg. The reference range was not used to interpret this result as normal/abnormal . STUART (test code = STUART) Left Ventricle: Normal wall motion. Normal systolic function with a visually estimated EF of 55 - 60%. Normal diastolic function. No hemodynamically significant valvular stenosis or regurgitation. No pulmonary hypertension. No pericardial effusion. Left VentricleLeft ventricle size is normal. Normal wall thickness. Normal wall motion. Normal systolic function with a visually estimated EF of 55 - 60%. Normal diastolic function.Right VentricleRight ventricle size is normal. Normal systolic function.Left AtriumLeft atrium size is normal. LA vol index is 21.7 mL/m2.Right AtriumRight atrium size is normal.IVC/SVCIVC diameter is less than or equal to 21 mm and decreases less than 50% during inspiration; therefore the estimated right atrial pressure is intermediate (~8 mmHg).Mitral ValveValve structure is normal. No restricted motion. No significant valvular regurgitation. No stenosis.Tricuspid ValveValve structure is normal. Trace valvular regurgitation. No pulmonary hypertension is present. Normal pulmonary artery systolic pressure. RVSP is 27.91 mmHg. RAP is 8.0 mmHg.Aortic ValveValve structure appears tricuspid. No restricted motion. No significant valvular regurgitation. No stenosis.Pulmonic ValveNot well visualized. No significant valvular regurgitation.Perica rdiumThere is no pericardial effusion present.AortaNormal sized aortic root.Study DetailsStudy quality was good. A complete 2D, color flow Doppler and spectral Doppler echocardiogram was performed. Patient exhibited sinus rhythm.Wall Scoring BaselineScore Index: 1.00The left ventricular wall motion is normal. Lab Interpretation Abnormal (test code = 23118-5) [facility], (w Contrast, Strain and 3D if needed)2022-05-26 02:26:27 Test Item Value Reference Interpretation Comments Range Ao Root Diameter 2.87 cm (test code = 3155537977) AoV Area, Vmax (test 2.35 cm2 code = 1936412208) AoV Area, VTI (test 2.28 cm2 code = 2173994594) AoV Mean PG (test mmHg code = 0481566837) AoV Peak PG (test mmHg code = 5932056411) AoV Vmax (test code 1.55 m/s = 4841710891) AoV VTI (test code = 0.30 m 0686534634) IVS,d (test code = 1.04 cm 0.6-0.9 A 8921353541) IVS/LVPW,2D (test code = 6173828125) Left Atrium 3.35 cm Dimension Anterior (test code = 7810855744) LV,d (test code = 4.02 cm 1388748244) LV EF,2D (test code 65.49 % = 1423017700) LV,s (test code = 2.82 cm 5368270014) LVOT area (test code 2.95 cm2 = 9053590121) LVOT Diam,S (test 1.94 cm code = 3281999379) LVOT Vmax (test code 1.33 m/s = 0149987396) LVOT VTI (test code 0.22 m = 8728173308) LVPWD,d (test code = 0.97 cm 0.6-0.9 A 8616625918) TR Vpeak (test code 2.23 m/s = 5403753482) MV E A ratio (test code = 6980239945) TR pk grad (test mmHg code = 6302440632) E wave decelartion msec time (test code = 4487422543) MV Peak A Driss (test 0.47 m/s code = 3390835779) MV valve area p 1/2 4.28 cm2 method (test code = 3686051207) MV Peak E Driss (test 0.89 m/s code = 1495264702) MV stenosis pressure 51.45 ms 1/2 time (test code = 4493532766) LVOT stroke volume 0.65 ml (test code = 9560371483) AV LVOT peak mmHg gradient (test code = 0677572460) Ao Root Diameter 2.87 cm (test code = 2971917727) LV SYS VOL (test 30.00 ml 14-42 code = 1551505255) LV HERRERA VOL (test 70.67 ml 46-106 code = 1966588880) LA area s A4C (test 15.99 cm2 code = 1737349129) LV SV Teich 2D (test 40.67 ml code = 8449762436) LV Vol s Teich PSAX 30.00 ml (test code = 6090953834) LVOT CI (test code = 2.75 l/min/m2 1156791081) LVOT CO (test code = 5.04 l/min 8603194703) LVOT HR for LVOT CO bpm (test code = 0575601593) LVOT SI (test code = 35.65 ml/m2 6126640732) AoV Vmn (test code = 1.03 m/s 5374480451) IVS s 2D (test code 1.38 cm = 9471837721) LV FS Teich 2D (test code = 4639850690) MV AE ratio (test code = 0633978630) LV FS Cube 2D (test code = 7042210205) LVOT Vmn (test code = 4647178095) Aov area Vmn (test 2.42 cm2 code = 1557930714) LVOT mean grad (test mmHg code = 1349139019) MAX Pred HR (test code = 7362208744) 85 of MPHR (test code = 4672013355) Calc MPHR (test code bpm = 1811283724) IVS pct thck PLAX 32.72 % (test code = 3322067384) LV SV Cube 2D (test 42.42 ml code = 1843088775) LV vol d cube 2D 64.78 ml (test code = 6949544032) LV vol s cube 2D 22.36 ml (test code = 2591796863) LVPW pct thck PLAX 46.45 % (test code = 6882606785) LVPW s PLAX (test 1.42 cm code = 8322969236) MV Decel slope (test 6.47 m/s2 code = 0178330448) Pred Exer Dur R1 (test code = 2475755156) Pred METS R1 (test code = 4507895907) LA Vol MOD A4C (test 35.84 ml code = 4798203163) Velocity Ratio 0.86 m/s (V1/V2) (test code = 4689) EF (test code = 58 % 3733758199) E/A ratio (test code = 0442951526) LVOT VTI (CM) (test 22.00 cm code = 2217196243) LA Volume Index 21.7 mL/m2 See_Comment [Automated (test code = message] The 7082388699) system which generated this result transmitted reference range : <=35. The reference range was not used to interpret this result as normal/abnormal . TAPSE (test code = 1.7 cm 1611937939) RA pressure (test mmHg code = 9191184360) RVSP (test code = See_Comment [Automate d 6108058995) message] The system which generated this result transmitted reference range : 40.00 mmHg. The reference range was not used to interpret this result as normal/abnormal . STUART (test code = STUART) Left Ventricle: Normal wall motion. Normal systolic function with a visually estimated EF of 55 - 60%. Normal diastolic function. No hemodynamically significant valvular stenosis or regurgitation. No pulmonary hypertension. No pericardial effusion. Left VentricleLeft ventricle size is normal. Normal wall thickness. Normal wall motion. Normal systolic function with a visually estimated EF of 55 - 60%. Normal diastolic function.Right VentricleRight ventricle size is normal. Normal systolic function.Left AtriumLeft atrium size is normal. LA vol index is 21.7 mL/m2.Right AtriumRight atrium size is normal.IVC/SVCIVC diameter is less than or equal to 21 mm and decreases less than 50% during inspiration; therefore the estimated right atrial pressure is intermediate (~8 mmHg).Mitral ValveValve structure is normal. No restricted motion. No significant valvular regurgitation. No stenosis.Tricuspid ValveValve structure is normal. Trace valvular regurgitation. No pulmonary hypertension is present. Normal pulmonary artery systolic pressure. RVSP is 27.91 mmHg. RAP is 8.0 mmHg.Aortic ValveValve structure appears tricuspid. No restricted motion. No significant valvular regurgitation. No stenosis.Pulmonic ValveNot well visualized. No significant valvular regurgitation.Perica rdiumThere is no pericardial effusion present.AortaNormal sized aortic root.Study DetailsStudy quality was good. A complete 2D, color flow Doppler and spectral Doppler echocardiogram was performed. Patient exhibited sinus rhythm.Wall Scoring BaselineScore Index: 1.00The left ventricular wall motion is normal. Lab Interpretation Abnormal (test code = 94236-1) [facility]
[2022-12-17] MEDS ORDERED: ONDANSETRON 4 MG/2 ML VIAL ONE (19:04)
[2022-12-17] MEDS ORDERED: KETOROLAC 30 MG/ML INJ ONE (19:04)
[2022-12-17] MEDS ORDERED: NA CHLORIDE 0.9% 1,000 ML ONE (19:04)
[2022-12-17 19:28] LABS: Hematocrit 35.5 % (36.0-45.0); Lymphocytes % 35.4 % (15.3-44.8); MCV 79.3 fL (80-100); MPV 7.7 fL (7.6-11.3); RBC Red Blood Cell Count 4.48 M/uL (3.86-4.86)
[2022-12-17 19:44] LABS: Albumin 3.2 g/dL (3.4-5.0); Bilirubin Total 0.2 mg/dL (0.2-1.0); Potassium 4.3 mmol/L (3.5-5.1); Protein, Total 7.1 g/dL (6.4-8.2)
[2022-12-17] MEDS ORDERED: FENTANYL CITR 100 MCG/2 ML ONE (19:56)
[2022-12-17 20:14] LABS: Blood Morphology Comment NOT SEEN (NOT SEEN); Platelet Estimate ADEQ; White Blood Cell Scan OK (OK)
--- NOTE | 2022-12-17 21:04 | RAD REPORT ---
EXAM DESCRIPTION: CTAbdomen Pelvis W Contrast - 12/17/2022 8:50 pm CLINICAL HISTORY: abd pain COMPARISON: No comparisons TECHNIQUE: CT of the abdomen and pelvis was performed with IV contrast. All CT scans are performed using dose optimization technique as appropriate and may include automated exposure control or mA/KV adjustment according to patient size. FINDINGS: Lower chest: No acute abnormality. Liver: No acute abnormality or suspicious lesions. Biliary: No biliary ductal dilatation. Stomach: No significant focal abnormality. Duodenum: No significant focal abnormality. Pancreas: No significant abnormality. Spleen: No significant abnormality. Adrenal: No suspicious lesions. Kidney/ureter: No hydronephrosis. No renal calculi. Retroperitoneum: No retroperitoneal adenopathy. Vascular: No aneurysm. Bowel: No significant focal abnormality. Normal appendix. Peritoneum: No ascites or free air. Ventral abdominal wall laxity. Bladder: Decompressed, incompletely evaluated. Reproductive: All calcified and noncalcified fibroids present. A peripherally calcified mass along th e ventral aspect of the uterus may represent a previously torsed subserosal fibroid. Bones: No acute fracture. Other: n/a IMPRESSION: No acute intra-abdominal or pelvic finding. Normal appendix. Fibroid uterus. Peripherally calcified mass along the ventral aspect of uterus may represent a previo usly torsed subserosal fibroid. Suggest correlating with any prior CTs if available. Otherwise, consi fer outpatient gynecologic referral.
--- NOTE | 2022-12-17 21:24 | EDPHYS ---
Physician Documentation [facility] Name: Karena Barron Age: 42 yrs Sex: Female : 1980 Arrival Date: 12/17/2022 Time: 17:55 Bed 18 Private MD: ED Physician HPI: 12/17 21:28 This 42 yrs old Black Female presents to ER via EMS with complaints of Rectal Pain. kb 21:30 The patient presents to the emergency department with pain in the rectal area. Onset: kb The symptoms/episode began/occurred yesterday. Context: the patient has a known history of hemorrhoids. Modifying factors: The symptoms are alleviated by nothing, The symptoms are aggravated by movement, sitting position. Associate signs and symptoms: Pertinent positives: abdominal pain in the right lower quadrant and left lower quadrant. The patient has experienced similar episodes in the past. The patient has not recently seen a physician. Pt reports rectal pain and abd/low back pain that started yesterday. Historical: - Allergies: 18:14 unknown pain medication; ss - PMHx: 18:14 Depression; hydranitis suppurativa; internal/ external hemorrhoids; ss - PSHx: 18:14 section; ss - Immunization history:: Client reports having NOT received the Covid vaccine. - Social history:: Smoking status: Reported history of juuling and/or vaping. ROS: 21:29 Constitutional: Negative for fever, chills, and weight loss. kb 21:29 Abdomen/GI: Positive for abdominal pain, rectal pain. 21:29 All other systems are negative. Exam: 21:29 Constitutional: This is a well developed, well nourished patient who is awake, alert, kb and in no acute distress. Head/Face: Normocephalic, atraumatic. ENT: Moist Mucous membranes Cardiovascular: Regular rate and rhythm with a normal S1 and S2. No gallops, murmurs, or rubs. No pulse deficits. Respiratory: Respirations even and unlabored. No increased work of breathing. Talking in full sentences Skin: Warm, dry with normal turgor. Normal color. MS/ Extremity: Pulses equal, no cyanosis. Neurovascular intact. Full, normal range of motion. Neuro: Awake and alert, GCS 15, oriented to person, place, time, and situation. Moves all extremities. Normal gait. Psych: Awake, alert, with orientation to person, place and time. Behavior, mood, and affect are within normal limits. 21:29 Abdomen/GI: Inspection: abdomen appears normal, Bowel sounds: normal, Palpation: soft, in all quadrants, mild abdominal tenderness, in the right lower quadrant and left lower quadrant, Rectal exam: hemorrhoid(s), external, with inflammation, with pain, without bleeding, without thrombosis. Vital Signs: 18:12 BP 107 / 46; Pulse 91; Resp 15; Temp 97.9(O); Pulse Ox 97% on R/A; Weight 88.45 kg; ss Height 5 ft. 6 in. (167.64 cm); Pain 7/10; 18:47 BP 101 / 66; Pulse 85; Resp 20; Pulse Ox 100% ; mb9 19:15 BP 110 / 66; Pulse 80; Resp 17 S; Pulse Ox 97% on R/A; ha1 20:10 BP 105 / 65; Pulse 70; Resp 15 S; Pulse Ox 98% on R/A; ha1 21:10 BP 109 / 61; Pulse 70; Resp 15 S; Pulse Ox 99% on R/A; ha1 18:12 Body Mass Index 31.47 (88.45 kg, 167.64 cm) ss MDM: 17:55 Patient medically screened. kb 21:29 Differential diagnosis: hemorrhoids, fissure, abscess. Data reviewed: vital signs, kb nurses notes. Historians other than the Patient: EMS: [facility]. Counseling: I had a detailed discussion with the patient and/or guardian regarding: the historical points, exam findings, and any diagnostic results supporting the discharge/admit diagnosis, lab results, radiology results, the need for outpatient follow up, a family practitioner, a general surgeon, a lace paper machine operator, to return to the emergency department if symptoms worsen or persist or if there are any questions or concerns that arise at home. 12/17 17:56 Order name: CBC with Diff; Complete Time: 20:15 kb 12/17 17:56 Order name: CMP; Complete Time: 19:48 kb 12/17 17:56 Order name: Lipase; Complete Time: 19:48 kb 12/17 19:35 Order name: CBC Smear Scan; Complete Time: 20:15 EDMS 12/17 17:56 Order name: CT Abd/Pelvis - IV Contrast Only; Complete Time: 21:06 kb 12/17 17:56 Order name: IV Saline Lock; Complete Time: 19:33 kb 12/17 17:56 Order name: Labs collected and sent; Complete Time: 19:33 kb 12/17 17:56 Order name: Urine Dipstick-Ancillary (obtain specimen); Complete Time: 20:30 kb 12/17 17:56 Order name: Urine Test (obtain specimen); Complete Time: 20:30 kb 12/17 21:54 Order name: Urine Dipstick-Ancillary (obtain specimen); Complete Time: 01:11 mw2 Administered Medications: 19:20 Drug: NS 0.9% 1000 ml Route: IV; Rate: 1 bolus; Site: right antecubital; ha1 20:50 Follow up: Response: No adverse reaction ha1 19:22 Drug: TORadol - (ketorolac) 15 mg Route: IVP; Site: right antecubital; ha1 19:45 Follow up: Response: No adverse reaction; Pain is unchanged, physician notified ha1 19:25 Drug: Zofran (Ondansetron) 4 mg Route: IVP; Site: right antecubital; ha1 19:45 Follow up: Response: No adverse reaction ha1 19:57 Drug: fentaNYL (PF) 25 mcg Route: IVP; Site: right antecubital; ha1 20:10 Follow up: Response: No adverse reaction; Pain is decreased; RASS: Alert and Calm (0) ha1 Disposition Summary: 12/17/22 21:23 Discharge Ordered Location: Home kb Condition: Stable kb Diagnosis - Abdominal pain, Generalized kb - External hemorroid kb Followup: kb - With: Emergency Department - When: As needed - Reason: Worsening of condition Followup: kb - With: Private Physician - When: 2 - 3 days - Reason: Recheck today's complaints, Continuance of care, Re-evaluation by your physician Discharge Instructions: - Discharge Summary Sheet kb - Abdominal Pain, Adult, [id number] kb - Hemorrhoids, [id number] kb Forms: - Medication Reconciliation Form kb - Thank You Letter kb - Antibiotic Education kb - Prescription Opioid Use kb Prescriptions: - Anusol-HC 2.5 % Topical cream with perineal applicator - apply 1 application by TOPICAL route 2 times per day; 1 tube; Refills: 0, kb Product Selection Permitted Signatures: Dispatcher [employer] EDMervat Barraza, VENDING MACHINE SERVICER-C PERNELL-Alie Andrews RN RN Enio Mccoy 2 Rose Mary Maynard RN RN ha1 Corrections: (The following items were deleted from the chart) 20:49 19:50 TEST, SERUM+SC.LAB.BRZ ordered. MUKESH MAYORGA
--- NOTE | 2022-12-17 21:24 | ER ---
Nurse's Notes [facility] Name: Karena Barron Age: 42 yrs Sex: Female : 1980 Arrival Date: 12/17/2022 Time: 17:55 Bed 18 Private MD: Diagnosis: Abdominal pain, Generalized;External hemorroid Presentation: 12/17 18:12 Chief complaint: Patient states: rectal pain that began yesterday and now experiencing ss pain to low back that radiates down R leg. Pt reports a history of hemorrhoids and believes they may be the reason she is in pain. Coronavirus screen: Client denies travel out of the [place] in the last 14 days. Ebola Screen: Patient denies exposure to infectious person. Patient denies travel to an Ebola-affected area in the 21 days before illness onset. Initial Sepsis Screen: Does the patient meet any 2 criteria? No. Patient's initial sepsis screen is negative. Does the patient have a suspected source of infection? No. Patient's initial sepsis screen is negative. Risk Assessment: Do you want to hurt yourself or someone else? Patient reports no desire to harm self or others. Onset of symptoms was December 16, 2022. 18:12 Method Of Arrival: EMS: [facility] ss 18:12 Acuity: TATY 3 ss Historical: - Allergies: 18:14 unknown pain medication; ss - PMHx: 18:14 Depression; hydranitis suppurativa; internal/ external hemorrhoids; ss - PSHx: 18:14 section; ss - Immunization history:: Client reports having NOT received the Covid vaccine. - Social history:: Smoking status: Reported history of juuling and/or vaping. Screenin:14 Abuse screen: Denies threats or abuse. Denies injuries from another. Nutritional ha1 screening: No deficits noted. Tuberculosis screening: No symptoms or risk factors identified. 19:14 [place] ED Fall Risk Assessment (Adult) History of falling in the last 3 months, ha1 including since admission No falls in past 3 months (0 pts) Confusion or Disorientation No (0 pts) Intoxicated or Sedated No (0 pts) Impaired Gait No (0 pts) Mobility Assist Device Used No (0 pt) Altered Elimination No (0 pt). Assessment: 18:52 General: Appears uncomfortable, Behavior is anxious. Pain: Complains of pain in back mb9 and abdomen and rectum. Pain: Pain radiates to right leg Pain currently is 8 out of 10 on a pain scale. Quality of pain is described as aching, Is intermittent. Neuro: Ca Agitation-Sedation Scale (RASS): 0 - Alert and Calm Level of Consciousness is awake, alert, obeys commands, Oriented to person, place, time, situation, Appropriate for age. Cardiovascular: Capillary refill < 3 seconds is brisk Patient's skin is warm and dry. Respiratory: Airway is patent Respiratory effort is even, unlabored, Respiratory pattern is regular, symmetrical, Breath sounds are clear bilaterally. GI: Abdomen is round non-distended, Bowel sounds present X 4 quads. Abd is soft and non tender X 4 quads. : No signs and/or symptoms were reported regarding the genitourinary system. EENT: No signs and/or symptoms were reported regarding the EENT system. Derm: Skin is intact, Skin is dry, Skin is normal, Skin temperature is warm. Musculoskeletal: Range of motion: intact in all extremities. 19:08 Reassessment: report given to CHARLES Mccann. mb9 19:12 General: Appears uncomfortable, Behavior is cooperative. Pain: Complains of pain in ha1 pelvic and right leg Pain radiates to back Pain currently is 8 out of 10 on a pain scale. Quality of pain is described as aching, Is intermittent. Neuro: Level of Consciousness is awake, alert, obeys commands, Oriented to person, place, time, situation. Cardiovascular: Capillary refill < 3 seconds Patient's skin is warm and dry. Respiratory: Airway is patent Respiratory effort is even, unlabored, Respiratory pattern is regular, symmetrical. GI: No signs and/or symptoms were reported involving the gastrointestinal system. Abdomen is round non-distended, Bowel sounds present X 4 quads. Abd is soft and non tender X 4 quads. : No signs and/or symptoms were reported regarding the genitourinary system. EENT: No deficits noted. No signs and/or symptoms were reported regarding the EENT system. Derm: Skin is healthy with good turgor, Skin is normal. Musculoskeletal: Circulation, motion, and sensation intact. Range of motion: intact in all extremities. 20:10 Reassessment: Patient and/or family updated on plan of care and expected duration. Pain ha1 level reassessed. Patient is alert, oriented x 3, equal unlabored respirations, skin warm/dry/pink. pain 3/10 Patient states feeling better. 20:40 Reassessment: going to CT. ha1 21:10 Reassessment: Patient and/or family updated on plan of care and expected duration. Pain ha1 level reassessed. Patient is alert, oriented x 3, equal unlabored respirations, skin warm/dry/pink. Patient denies pain at this time. Patient states feeling better. Vital Signs: 18:12 BP 107 / 46; Pulse 91; Resp 15; Temp 97.9(O); Pulse Ox 97% on R/A; Weight 88.45 kg; ss Height 5 ft. 6 in. (167.64 cm); Pain 7/10; 18:47 BP 101 / 66; Pulse 85; Resp 20; Pulse Ox 100% ; mb9 19:15 BP 110 / 66; Pulse 80; Resp 17 S; Pulse Ox 97% on R/A; ha1 20:10 BP 105 / 65; Pulse 70; Resp 15 S; Pulse Ox 98% on R/A; ha1 21:10 BP 109 / 61; Pulse 70; Resp 15 S; Pulse Ox 99% on R/A; ha1 18:12 Body Mass Index 31.47 (88.45 kg, 167.64 cm) ED Course: 17:55 Patient arrived in ED. kb 17:55 Mervat Knott FNP-C is [facility]. kb 17:55 Joe Lawrence MD is Attending Physician. kb 18:05 Raquel Marcano, CHARLES is Primary Nurse. mb9 18:14 Triage completed. ss 18:14 Arm band placed on right wrist. ss 19:11 Rose Mary Maynard, CHARLES is Primary Nurse. ha1 19:14 Patient has correct armband on for positive identification. Placed in gown. Bed in low ha1 position. Call light in reach. Side rails up X 1. Adult w/ patient. 19:23 Inserted saline lock: 20 gauge in right antecubital area, using aseptic technique. oe Blood collected. 20:51 CT Abd/Pelvis - IV Contrast Only In Process Unspecified. EDMS 21:50 No provider procedures requiring assistance completed. IV discontinued, intact, ha1 bleeding controlled, No redness/swelling at site. Pressure dressing applied. 21:53 Attending Physician role handed off by Joe Lawrence MD vc1 Administered Medications: 19:20 Drug: NS 0.9% 1000 ml Route: IV; Rate: 1 bolus; Site: right antecubital; ha1 20:50 Follow up: Response: No adverse reaction ha1 19:22 Drug: TORadol - (ketorolac) 15 mg Route: IVP; Site: right antecubital; ha1 19:45 Follow up: Response: No adverse reaction; Pain is unchanged, physician notified ha1 19:25 Drug: Zofran (Ondansetron) 4 mg Route: IVP; Site: right antecubital; ha1 19:45 Follow up: Response: No adverse reaction ha1 19:57 Drug: fentaNYL (PF) 25 mcg Route: IVP; Site: right antecubital; ha1 20:10 Follow up: Response: No adverse reaction; Pain is decreased; RASS: Alert and Calm (0) ha1 Medication: 21:51 VIS not applicable for this client. ha1 Outcome: 21:23 Discharge ordered by . ibis 21:51 Discharged to home ambulatory, with family. ha1 21:51 Condition: stable 21:51 Discharge instructions given to patient, family, Instructed on discharge instructions, follow up and referral plans. medication usage, Demonstrated understanding of instructions, follow-up care, medications, Prescriptions given X 1. 21:52 Patient left the ED. ha1 22:03 Patient left the ED. ha1 Signatures: Dispatcher [employer] EDAZ Mervat Knott, WEB SERVICES DEVELOPER-C WEB SERVICES DEVELOPER-Alie Andrews RN RN ss Espinosa, Orlando oe [place], Vanessa RN RN vc1 Rose Mary Maynard RN RN ha1 Raquel Marcano RN RN mb9
[2022-12-17 22:34] VITALS: TEMP 97.9
[2022-12-17 22:52] VITALS: BP 109/61; O2SAT 99
== END 2022-12-17 22:03 | disposition home or self-care (01) ==
LOC: ER 17:53
DX: R10.84 Generalized abdominal pain (principal); K64.4 Residual hemorrhoidal skin tags
CPT/HCPCS: 85025; 36415; 83690; 80053; 74177; Q9967; J3010; J7030; J2405; 96374; 96375; 99284

== ENCOUNTER 2024-09-16 12:17 | Emergency (ER) | payer OTHER ==
--- NOTE | 2024-09-16 15:36 | RAD REPORT ---
EXAMINATION: XR Ankle Left 3 View CLINICAL INDICATION: Female, 44 years old. [facility] [place] MAIN PAIN Bed Name: TECHNIQUE: 3 view radiographs of the left ankle were obtained. COMPARISON: No prior exam. FINDINGS: No bone or joint abnormality seen. IMPRESSION: No acute or significant abnormalities.
[2024-09-16] MEDS ORDERED: KETOROLAC 30 MG/ML INJ ONE (15:59)
[2024-09-16 16:00] LABS: Absolute Basophils 0.2 K/uL (0-0.5); Absolute Eosinophils 0.2 K/uL (0-0.5); Absolute Lymphocytes (CBC) 3.1 K/uL (0.7-4.9); Absolute Monocytes 0.5 K/uL (0.1-1.3); Absolute Neutrophil 5.8 K/uL (1.8-8.0); Basophils % 1.6 % (0-1.3); Eosinophils % 2.5 % (0-4.4); Hematocrit 41.4 % (36.0-45.0); Hemoglobin 13.7 g/dL (12.0-15.0); Lymphocytes % 31.6 % (15.3-44.8); MCH 27.4 pg (27.0-35.0); MCV 83.1 fL (80-100); MPV 7.6 fL (7.6-11.3); Monocytes % 5.3 % (3.3-12.3); Platelets 289 thou/uL (152-406); RBC Red Blood Cell Count 4.98 M/uL (3.86-4.86)
--- NOTE | 2024-09-16 16:06 | RAD REPORT ---
EXAMINATION: US LEFT LOWER EXTREMITY VENOUS DOPPLER CLINICAL INDICATION: [facility] MAIN LLE Pain;Swelling Bed Name: 13 Y TECHNIQUE: Complete bilateral duplex sonography of the LEFT lower extremity veins was performed. The examination included compression for vein patency, color Doppler imaging and flow augmentation in response to distal compression of the distal external iliac, common femoral, femoral, popliteal, tibi al, and great and small saphenous veins. COMPARISON: No prior exam. FINDINGS: Duplex sonography testing of the veins of the LEFT lower extremity was performed. Color flow imaging shows all veins to be compressible with [id number] color filling. Pulsatile and phasic flow is present within all lower extremity deep and superficial veins examined. IMPRESSION: No evidence of deep venous thrombosis.
[2024-09-16 16:15] LABS: Albumin 3.5 g/dL (3.4-5.0); Albumin/Globulin Ratio 0.8 (1.1-1.8); Anion Gap 7.6 mEq/L (5.0-15.0); Bilirubin Total 0.3 mg/dL (0.2-1.0); Globulin 4.4 g/dL (2.3-3.5); Potassium 3.6 mEq/L (3.5-5.1); Protein, Total 7.9 g/dL (6.4-8.2); Uric Acid 4.4 mg/dL (2.6-6.0)
--- NOTE | 2024-09-16 16:26 | EDPHYS ---
Physician Documentation [facility] Name: Karena Barron Age: 44 yrs Sex: Female : 1980 Arrival Date: 09/16/2024 Time: 12:17 Bed 15 Private MD: ED Physician Sabrina Craig HPI: 09/16 14:24 This 44 yrs old Black Female presents to ER via Wheelchair with complaints of Ankle sp3 Swelling. 14:31 44-year-old female with a history of hidradenitis, depression now presents with left sp3 ankle pain for the last 2 to 3 days. She denies any repetitive use, direct injury or prior problems. She denies history of gout. She denies any prior septic arthritis, STI history, fever, URI symptoms, neck pain, chest pain, shortness of breath, abdominal pain, back pain, other joint pain, trauma, or any other signs or symptoms on ROS at this time.. Historical: - Allergies: 12:35 No Known Allergies; iw - Home Meds: 12:35 None [Active]; iw - PMHx: 12:35 Depression; hydranitis suppurativa; internal/ external hemorrhoids; iw - PSHx: 12:35 section; iw 12:36 hysterectomy; iw - Immunization history:: Adult Immunizations not up to date. - Infectious Disease History:: Denies. - Social history:: Smoking status: Patient denies any tobacco usage or history of. ROS: 14:32 Constitutional: Negative for fever, chills, and weight loss, Eyes: Negative for injury, sp3 pain, redness, and discharge, ENT: Negative for injury, pain, and discharge, Neck: Negative for injury, pain, and swelling, Cardiovascular: Negative for chest pain, palpitations, and edema, Respiratory: Negative for shortness of breath, cough, wheezing, and pleuritic chest pain, Abdomen/GI: Negative for abdominal pain, nausea, vomiting, diarrhea, and constipation, Back: Negative for injury and pain, : Negative for injury, bleeding, discharge, and swelling, Skin: Negative for injury, rash, and discoloration, Neuro: Negative for headache, weakness, numbness, tingling, and seizure, Psych: Negative for depression, anxiety, suicide ideation, homicidal ideation, and hallucinations, Allergy/Immunology: Negative for hives, rash, and allergies, Endocrine: Negative for neck swelling, polydipsia, polyuria, polyphagia, and marked weight changes, Hematologic/Lymphatic: Negative for swollen nodes, abnormal bleeding, and unusual bruising, 14:32 All other systems are negative, Exam: 14:32 Constitutional: This is a well developed, well nourished patient who is awake, alert, sp3 and in no acute distress. Head/Face: Normocephalic, atraumatic. Eyes: Pupils equal round and reactive to light, extra-ocular motions intact. Lids and lashes normal. Conjunctiva and sclera are non-icteric and not injected. Cornea within normal limits. Periorbital areas with no swelling, redness, or edema. Neck: Trachea midline, no thyromegaly or masses palpated, and no cervical lymphadenopathy. Supple, full range of motion without nuchal rigidity, or vertebral point tenderness. No Meningismus. Chest/axilla: Normal chest wall appearance and motion. Nontender with no deformity. No lesions are appreciated. Cardiovascular: Regular rate and rhythm with a normal S1 and S2. No gallops, murmurs, or rubs. Normal PMI, no JVD. No pulse deficits. Respiratory: Lungs have equal breath sounds bilaterally, clear to auscultation and percussion. No rales, rhonchi or wheezes noted. No increased work of breathing, no retractions or nasal flaring. Abdomen/GI: Soft, non-tender, with normal bowel sounds. No distension or tympany. No guarding or rebound. No evidence of tenderness throughout. Back: No spinal tenderness. No costovertebral tenderness. Full range of motion. Skin: Warm, dry with normal turgor. Normal color with no rashes, no lesions, and no evidence of cellulitis. Neuro: Awake and alert, GCS 15, oriented to person, place, time, and situation. Cranial nerves II-XII grossly intact. Motor strength 5/5 in all extremities. Sensory grossly intact. Cerebellar exam normal. Normal gait. Psych: Awake, alert, with orientation to person, place and time. Behavior, mood, and affect are within normal limits. 14:32 Musculoskeletal/extremity: Lateral ankle pain and mild swelling noted. Neurovascular exam is normal. Patient is ambulatory but painful to walk on it. No other joint involvement.. Vital Signs: 12:34 BP 128 / 80; Pulse 77; Resp 16; Pulse Ox 100% ; Weight 95.25 kg; Height 5 ft. 7 in. ; iw Pain 9/10; 12:36 BP 117 / 78; Pulse 72; Resp 16; Pulse Ox 99% on R/A; db 12:34 Body Mass Index 32.89 (95.25 kg, 170.18 cm) iw 12:34 Pain Scale: Adult iw MDM: 12:46 Medical Screening Exam initiated sp3 14:33 Data reviewed: vital signs, nurses notes, lab test result(s), radiologic studies. ED sp3 course: Differential diagnosis includes arthritis, gout, ankle injury/fracture, and DVT. X-ray of the ankle is normal. DVTs ultrasound and labs including uric acid are pending. Clinically are not highly suspicious of septic joint. Will discharge on NSAIDs if workup is negative and follow-up with orthopedics.. 16:24 ED course: Full workup negative. We will reassure patient and send her home on sp3 diclofenac with follow-up to PCP and orthopedics.. 09/16 14:08 Order name: CBC with Diff; Complete Time: 16:02 sp3 09/16 14:08 Order name: CMP; Complete Time: 16:24 sp3 09/16 14:08 Order name: Uric Acid; Complete Time: 16:24 sp3 09/16 12:47 Order name: Ankle Left 3 View XRAY; Complete Time: 16:02 sp3 09/16 14:08 Order name: US Extremity Venous Unilateral Ltd; Complete Time: 16:08 sp3 09/16 14:08 Order name: IV Saline Lock; Complete Time: 15:56 sp3 09/16 14:08 Order name: Labs collected and sent; Complete Time: 15:56 sp3 Administered Medications: 16:05 Drug: TORadol - Ketorolac IVP 15 mg IVP once Route: IVP; Site: right hand; ph Disposition Summary: 09/16/24 16:25 Discharge Ordered Notes: Location: Home sp3 Condition: Stable sp3 Diagnosis - Ankle pain sp3 Followup: sp3 - With: Private Physician - When: Upon discharge from the Emergency Department - Reason: Continuance of care Followup: sp3 - With: Amos Brown MD - When: Upon discharge from the Emergency Department - Reason: Recheck today's complaints Discharge Instructions: - Discharge Summary Sheet sp3 - Ankle Pain sp3 Forms: - Medication Reconciliation Form sp3 - Antibiotic Education sp3 - Prescription Opioid Use sp3 - Patient Portal Instructions sp3 - Leadership Thank You Letter sp3 Prescriptions: - Diclofenac Sodium 75 mg Oral Tablet Sustained Release - take 1 tablet ORAL route 2 times per day; 30 tablet; Refills: 0, Product sp3 Selection Permitted Signatures: Dispatcher [employer] Susanna Hinojosa RN RN iw Gin Castillo RN RN Sabrina Craig MD MD sp3 Corrections: (The following items were deleted from the chart) 12:36 12:35 Allergies: unknown pain medication; [facility]
--- NOTE | 2024-09-16 16:26 | ER ---
Nurse's Notes [facility] Name: Karena Barron Age: 44 yrs Sex: Female : 1980 Arrival Date: 09/16/2024 Time: 12:17 Bed 15 Private MD: Diagnosis: Ankle pain Presentation: 09/16 12:34 Chief complaint: Patient states: left ankle pain since Sunday, no injury, today it iw swelled up and now she cannot walk without pain. Coronavirus screen: At this time, the client does not indicate any symptoms associated with coronavirus-19. Ebola Screen: No symptoms or risks identified at this time. Initial Sepsis Screen: Does the patient meet any 2 criteria? No. Patient's initial sepsis screen is negative. Does the patient have a suspected source of infection? No. Patient's initial sepsis screen is negative. Risk Assessment: Do you want to hurt yourself or someone else? Patient reports no desire to harm self or others. 12:34 Method Of Arrival: Wheelchair iw 12:34 Acuity: TATY 3 iw Historical: - Allergies: 12:35 No Known Allergies; iw - Home Meds: 12:35 None [Active]; iw - PMHx: 12:35 Depression; hydranitis suppurativa; internal/ external hemorrhoids; iw - PSHx: 12:35 section; iw 12:36 hysterectomy; iw - Immunization history:: Adult Immunizations not up to date. - Infectious Disease History:: Denies. - Social history:: Smoking status: Patient denies any tobacco usage or history of. Screenin:45 [facility] ED Fall Risk Assessment (Adult) History of falling in the last 3 months, db including since admission No falls in past 3 months (0 pts) Confusion or Disorientation No (0 pts) Intoxicated or Sedated No (0 pts) Impaired Gait No (0 pts) Mobility Assist Device Used No (0 pt) Altered Elimination No (0 pt) Score/Fall Risk Level 0 - 2 = Low Risk Oriented to surroundings, Maintained a safe environment. Abuse screen: Denies threats or abuse. Denies injuries from another. Nutritional screening: No deficits noted. Tuberculosis screening: No symptoms or risk factors identified. Assessment: 12:44 Reassessment: Patient appears in no apparent distress at this time. Patient and/or db family updated on plan of care and expected duration. Pain level reassessed. Patient is alert, oriented x 3, equal unlabored respirations, skin warm/dry/pink. General: Appears in no apparent distress. comfortable, Behavior is calm, cooperative. Pain: Complains of pain in anterior aspect of left ankle. Neuro: Level of Consciousness is awake, alert, obeys commands, Oriented to person, place, time, situation. Respiratory: Airway is patent Respiratory effort is even, unlabored, Respiratory pattern is regular, symmetrical. Musculoskeletal: Circulation, motion, and sensation intact. Capillary refill < 3 seconds, Swelling present in anterior aspect of left ankle. Vital Signs: 12:34 BP 128 / 80; Pulse 77; Resp 16; Pulse Ox 100% ; Weight 95.25 kg; Height 5 ft. 7 in. ; iw Pain 9/10; 12:36 BP 117 / 78; Pulse 72; Resp 16; Pulse Ox 99% on R/A; db 12:34 Body Mass Index 32.89 (95.25 kg, 170.18 cm) iw 12:34 Pain Scale: Adult iw ED Course: 12:21 Patient arrived in ED. mr 12:31 Sabrina Craig MD is Attending Physician. sp3 12:35 Triage completed. iw 12:44 Christina Ring, RN is Primary Nurse. db 12:44 Arm band placed on Patient placed in an exam room. db 14:08 Ankle Left 3 View XRAY In Process Unspecified. EDMS 15:17 US Extremity Venous Unilateral Ltd In Process Unspecified. EDMS 15:55 Patient has correct armband on for positive identification. Bed in low position. Call ph light in reach. Side rails up X 1. Pulse ox on. NIBP on. 15:55 Initial lab(s) drawn, by me, sent to lab. Missed attempt(s): 22 gauge in right ph antecubital area. Bleeding controlled, band aid applied, catheter tip intact. Inserted saline lock: 24 gauge in right hand, using aseptic technique. Blood collected. Flushed with 10 mL NS. 16:25 Amos Brown MD is Referral Physician. sp3 Administered Medications: 16:05 Drug: TORadol - Ketorolac IVP 15 mg IVP once Route: IVP; Site: right hand; ph Medication: 12:46 VIS not applicable for this client. db Outcome: 16:25 Discharge ordered by MD. schmitt 17:16 Patient left the ED. ph Signatures: Dispatcher [employer] EDWI GaroRaquel, Reg Reg mr Susanna Mccain, RN Gin Vieira RN RN ph Patel, Setul, MD MD sp3 Benton, Danielle, RN RN db Corrections: (The following items were deleted from the chart) 12:36 12:35 Allergies: unknown pain medication; shreya
[2024-09-16 17:22] VITALS: BP 117/78; O2SAT 99
== END 2024-09-16 17:16 | disposition home or self-care (01) ==
LOC: ER 12:17
DX: M25.572 Pain in left ankle and joints of left foot (principal)
CPT/HCPCS: 36415; 80053; 84550; 85025; 93971